=== PATIENT | female | born 1990 | race African-American/Black ===

== ENCOUNTER 2019-04-10 16:08 | Emergency (ER) | payer MEDICAID ==
[~2019-04-10] VITALS: Ht 167.6 cm; Wt 66.7 kg
[2019-04-10 16:20] VITALS: BP 125/78
[2019-04-10] MEDS ORDERED: AMOX1TAB61 PO (16:37)
--- NOTE | 2019-04-10 16:38 | PHYS DOC ---
Past Medical History Past Medical History: No Pertinent History Past Surgical History: No Surgical History Alcohol Use: None Drug Use: None Adult General Chief Complaint Chief Complaint: DENTAL PROBLEM HPI HPI Patient is a 29 year old female who presents with dental pain for 1 month. Patient was seen at a dental clinic and had a tooth pulled yesterday. She states that the pain has been getting worse. She told the dentist that she was taking clindamycin as it had been prescribed to her however the patient states she never got it filled. She states she has been taking ibuprofen at home and is not helping her pain. She rates her pain as 8 out of 10 in severity. Review of Systems Review of Systems Constitutional: Denies fever or chills [] Eyes: Denies change in visual acuity, redness, or eye pain [] HENT: Reports dental pain. Denies nasal congestion or sore throat [] Respiratory: Denies cough or shortness of breath [] Cardiovascular: No additional information not addressed in HPI [] GI: Denies abdominal pain, nausea, vomiting, bloody stools or diarrhea [] : Denies dysuria or hematuria [] Musculoskeletal: Denies back pain or joint pain [] Integument: Denies rash or skin lesions [] Neurologic: Denies headache, focal weakness or sensory changes [] Endocrine: Denies polyuria or polydipsia [] Complete systems were reviewed and found to be within normal limits, except as documented in this note. Allergies Allergies Allergies Coded Allergies Type Severity Reaction Last Updated Verified No Known Drug Allergies 04/10/19 No Physical Exam Physical Exam Constitutional: Well developed, well nourished, no acute distress, non-toxic appearance. [] HENT: Has swelling and missing tooth at # 28. Normocephalic, atraumatic, bilateral external ears normal, oropharynx moist, no oral exudates, nose normal. [] Eyes: PERRLA, EOMI, conjunctiva normal, no discharge. [] Neck: Normal range of motion, no tenderness, supple, no stridor. [] Cardiovascular:Heart rate regular rhythm, no murmur [] Lungs & Thorax: Bilateral breath sounds clear to auscultation [] Abdomen: Bowel sounds normal, soft, no tenderness, no masses, no pulsatile masses. [] Skin: Warm, dry, no erythema, no rash. [] Back: No tenderness, no CVA tenderness. [] Extremities: No tenderness, no cyanosis, no clubbing, ROM intact, no edema. [] Neurologic: Alert and oriented X 3, normal motor function, normal sensory function, no focal deficits noted. [] Psychologic: Affect normal, judgement normal, mood normal. [] Current Patient Data Vital Signs Vital Signs Date Time Temp Pulse Resp B/P (MAP) Pulse Ox O2 Delivery O2 Flow Rate FiO2 04/10/19 16:20 97.9 94 16 125/78 (94) 100 Room Air 97.9 EKG EKG [] Radiology/Procedures Radiology/Procedures [] Course & Med Decision Making Course & Med Decision Making Pertinent Labs and Imaging studies reviewed. (See chart for details) Appears to have dental abscess. Will have patient follow back up with Dentist. Will prescribe Augmentin and give a [place] here for pain. Dragon Disclaimer Dragon Disclaimer This electronic medical record was generated, in whole or in part, using a voice recognition dictation system. Departure Departure Impression: Primary Impression: Dental abscess Disposition: HOME, SELF-CARE Condition: STABLE Patient Instructions: Dental Abscess Additional Instructions: Thank you for visiting [facility]. We appreciate you trusting us with your care. If any additional problems come up don't hesitate to return to visit us. Please follow up with your primary care provider so they can plan additional care if needed and know about the problem that you had. If symptoms worsen come back to the Emergency Department. Any concerning symptoms that start such as chest pain, shortness of air, weakness or numbness on one side of the body, running high fevers or any other concerning symptoms return to the ER. You have been prescribed an antibiotic today to help fight your infection. Please take all of the antibiotic as directed. If after 48 hours the infection is not improving, please return for more care. If the infection worsens, return to ER for additional care. Please fill your medications at any pharmacy and follow the prescription instructions. Scripts Amoxicillin/Potassium Clav (AUGMENTIN 875-125 TABLET) 1 Each Tablet 1 TAB PO BID for 7 Days, #14 TAB Prov: SARAH BETH DORSEY APRN 04/10/19 SARAH BETH DORSEY APRN Apr 10, 2019 16:38
[2019-04-10] MEDS ORDERED: HYDROcodone/APAP 5/325MG 1 TAB TABLET PO ONE (16:45)
== END 2019-04-10 16:50 | disposition home or self-care (01) ==
LOC: ER 16:08
DX: K04.7 Periapical abscess without sinus (principal)
CPT/HCPCS: 99283

== ENCOUNTER 2019-04-15 08:41 | Emergency (ER) | payer MEDICAID ==
[~2019-04-15] VITALS: Ht 167.6 cm; Wt 66.7 kg
[~2019-04-15 08:41] MED LIST: AMOX1TAB61 PO
[2019-04-15 09:04] VITALS: BP 128/74
[2019-04-15] MEDS ORDERED: HYDROcodone/APAP 5/325MG 1 TAB TABLET PO ONE (10:00)
[2019-04-15] MEDS ORDERED: cefTRIAXone IM 1 GM VIAL IM ONE (10:00)
--- NOTE | 2019-04-15 10:03 | PHYS DOC ---
Past Medical History Past Medical History: Other Additional Past Medical Histor: DENTAL ABSCESS Past Surgical History: No Surgical History Alcohol Use: None Drug Use: None Adult General Chief Complaint Chief Complaint: DENTAL PROBLEM HPI HPI Patient is a 29 year old female with no significant medical history who presents to the ED today complaining as a throbbing 8 out of 10 right lower gum dental pain as well as left upper gum dental pain that has been going on for month. Patient states she was seen by a local dentist on April 09, 2019 and had an extraction done. She states the dentist put her on clindamycin but she did not take it. She states she was in the ED on April 10 2019 for dental pain and was put on Augmentin. She states she did not take it either. She states she cannot afford any medication. She states she is [place] they used to give them stronger pain medicines for dental pain. She states she is surprised in [place] nobody is willing to give her any strong pain medicines. She states she's did not get anything from the dentist other than ibuprofen. Patient denies any fever or trismus present. She continues to states she cannot afford any of this antibiotics prescriptions but continues to show interest for some stronger pain medicine than OTC. She states she cannot follow-up with the dentist because the dentist was "horrible." Review of Systems Review of Systems Constitutional: Denies fever or chills [] HENT: Reports dental pain. Denies nasal congestion or sore throat [] Musculoskeletal: Denies back pain or joint pain [] Integument: Denies rash or skin lesions [] Neurologic: Denies headache, focal weakness or sensory changes [] All other systems were reviewed and found to be within normal limits, except as documented in this note. Current Medications Current Medications Current Medications Medications (Trade) Dose Ordered Sig/Ju Start Time Stop Time Status Last Admin Dose Admin Acetaminophen/ Hydrocodone Bitart (Lortab 5/325) 2 tab 1X ONCE 04/15/19 10:00 04/15/19 10:01 UNV Ceftriaxone Sodium (Rocephin Im) 1 gm 1X ONCE 04/15/19 10:00 04/15/19 10:01 UNV Allergies Allergies Allergies Coded Allergies Type Severity Reaction Last Updated Verified No Known Drug Allergies 04/10/19 No Physical Exam Physical Exam Constitutional: Well developed, well nourished, no acute distress, non-toxic appearance. [] HENT: Normocephalic, atraumatic, bilateral external ears normal, oropharynx moist, no oral exudates, nose normal. [] Tooth #28 is extracted. No erythema to the gumline. No obvious abscess. Skin: Warm, dry, no erythema, no rash. [] Back: No tenderness, no CVA tenderness. [] Extremities: No tenderness, no cyanosis, no clubbing, ROM intact, no edema. [] Neurologic: Alert and oriented X 3, normal motor function, normal sensory function, no focal deficits noted. [] Psychologic: Affect normal, judgement normal, mood normal. [] Current Patient Data Vital Signs Vital Signs Date Time Temp Pulse Resp B/P (MAP) Pulse Ox O2 Delivery O2 Flow Rate FiO2 04/15/19 09:04 97.7 91 18 128/74 (92) 99 Room Air 97.7 EKG EKG [] Radiology/Procedures Radiology/Procedures [] Course & Med Decision Making Course & Med Decision Making Pertinent Labs and Imaging studies reviewed. (See chart for details) This is a 29-year-old female patient who presents to the ED today complaining of dental pain for 1 month. Patient had an extraction done on April 09, 2090, was sent home with clindamycin and ibuprofen. She did not take any of this medications. She came to the ED on April 10, 2019, was sent home on Augmentin, she did not fill any of this medication either. She presents today continuing to complain about dental pain. She states she cannot afford any medications but she would like something stronger than ibuprofen for her pain. I talked to patient at length. Informed patient dental pain is well managed with NSAIDs specifically ibuprofen and can be alternated with Tylenol. I offered Rocephin IM in the ED considering she is not able to fill any of her antibiotic prescriptions. She had refused initially but informed her if she cannot afford any medicine the Rocephin IM maybe a better alternative. I recommended she follows up with the dentist which she claims the dentist is horrible. Informed her she can try and find another dentist if she doesn't like the one she has, she states she is from [place] informed her to look for another dentist locally. She was discharged to home and encouraged to fill one of the RX she received from the ED or dentist. Sushant Disclaimer Sushant Disclaimer This electronic medical record was generated, in whole or in part, using a voice recognition dictation system. Departure Departure Impression: Primary Impression: Dentalgia Disposition: 01 HOME, SELF-CARE Condition: STABLE Referrals: NO PCP (PCP) follow up with a dentist in 1 week Patient Instructions: Dental Pain, [id number] Additional Instructions: You were evaluated in the emergency room for ongoing dental pain. Please establish care with another dentist if you do not like the one you currently have. Please take ibuprofen every 6 hours and Tylenol every 4 hours as needed for your dental pain. Please consider filling one of the prescriptions for antibiotics you received from either the dentist or our emergency room. SPRING ORTIZ APRN Apr 15, 2019 10:03
== END 2019-04-15 10:30 | disposition home or self-care (01) ==
LOC: ER 08:41
DX: K08.89 Other specified disorders of teeth and supporting structures (principal)
CPT/HCPCS: 96372; 99283; J0696

== ENCOUNTER 2019-09-14 07:36 | Emergency (ER) | payer MEDICAID ==
[~2019-09-14] VITALS: Ht 167.6 cm; Wt 62.6 kg
[2019-09-14] MEDS ORDERED: IV NORMAL SALINE 1000ML BAG 1,000 ML IV ONE (08:00)
[2019-09-14] MEDS ORDERED: FAMOTIDINE 20 MG/2 ML VIAL IVP ONE (08:00)
[2019-09-14] MEDS ORDERED: ONDANSETRON PF 4 MG/2 ML VIAL. IV ONE (08:00)
[2019-09-14] MEDS ORDERED: KETOROLAC 15 MG/ML VIAL. IVP ONE (08:00)
--- NOTE | 2019-09-14 08:12 | PHYS DOC ---
Past Medical History Past Medical History: Other Additional Past Medical Histor: DENTAL ABSCESS Past Surgical History: No Surgical History Smoking: Cigarettes Alcohol Use: None Drug Use: None Adult General Chief Complaint Chief Complaint: DRUG ABUSE HPI HPI Patient is a 29 year old female with PMH of opioid use who presents with opioid withdrawal symptoms. Pt reports some N/V, fatigue, body ache, LUCERO, chill. Since 2am, Pt took 1 phenergan and 1 zofran without any relieve. Pt also experience some stomach cramp and reflux symptoms. She has been on methadone for the past 2 months for her opioid addiction. This is due to a back injury that she had 9 yrs ago. However, She recently moved to from [place] and lives with her mother now. Pt has not established care with any PCP or addiction clinic. Therefore she has not taken methadone for 3 days. Review of Systems Review of Systems Constitutional: Denies fever. Positive chills Eyes: Denies redness or eye pain HENT: Denies nasal congestion or sore throat Respiratory: Denies cough or shortness of breath Cardiovascular: Denies chest pain. Some palpitations GI: Positive abdominal pain, nausea, and vomiting : Denies dysuria or hematuria Musculoskeletal: Denies back pain or joint pain Integument: Denies rash or skin lesions Neurologic: Denies headache, focal weakness or sensory changes Complete systems were reviewed and found to be within normal limits, except as documented in this note. Current Medications Current Medications Current Medications Medications (Trade) Dose Ordered Sig/Ju Start Time Stop Time Status Last Admin Dose Admin Clonidine HCl (Catapres) 0.1 mg 1X ONCE 09/14/19 10:45 09/14/19 10:46 DC 09/14/19 10:54 0.1 MG Diphenhydramine HCl (Benadryl) 50 mg 1X ONCE 09/14/19 09:30 09/14/19 09:31 DC 09/14/19 09:33 50 MG Famotidine (Pepcid Vial) 20 mg 1X ONCE 09/14/19 08:00 09/14/19 08:06 DC 09/14/19 08:29 20 MG Ketorolac Tromethamine (Toradol 15mg Vial) 15 mg 1X ONCE 09/14/19 08:00 09/14/19 08:06 DC 09/14/19 08:33 15 MG Metoclopramide HCl (Reglan Vial) 10 mg 1X ONCE 09/14/19 09:30 09/14/19 09:31 DC 09/14/19 09:34 10 MG Ondansetron HCl (Zofran) 4 mg 1X ONCE 09/14/19 10:45 09/14/19 10:46 DC 09/14/19 10:52 4 MG Sodium Chloride 1,000 ml @ 1,000 mls/hr 1X ONCE 09/14/19 08:00 09/14/19 08:59 DC 09/14/19 08:20 1,000 MLS/HR Allergies Allergies Allergies Coded Allergies Type Severity Reaction Last Updated Verified No Known Drug Allergies 04/10/19 No Physical Exam Physical Exam Constitutional: Well developed, well nourished, no acute distress, non-toxic appearance HENT: Normocephalic, atraumatic, oropharynx moist Eyes: Conjunctiva normal, no discharge Neck: Normal range of motion, no tenderness, supple Cardiovascular: Heart rate normal, regular rhythm Lungs & Thorax: Bilateral breath sounds clear to auscultation, no wheezing Abdomen: Soft, no tenderness Skin: Warm, dry, no erythema, no rash Extremities: No tenderness, ROM intact, no edema Neurologic: Alert and oriented X 3, no focal deficits noted Psychologic: Affect normal, judgement normal Current Patient Data Vital Signs Vital Signs Date Time Temp Pulse Resp B/P (MAP) Pulse Ox O2 Delivery O2 Flow Rate FiO2 09/14/19 10:54 67 113/64 09/14/19 10:30 18 99 Room Air 09/14/19 07:40 98.3 98.3 Lab Values Laboratory Tests Test 09/14/19 08:02 09/14/19 08:12 09/14/19 08:24 09/14/19 08:55 White Blood Count 11.0 x10^3/uL (4.0-11.0) Red Blood Count 4.15 x10^6/uL (3.50-5.40) Hemoglobin 12.6 g/dL (12.0-15.5) Hematocrit 37.7 % (36.0-47.0) Mean Corpuscular Volume 91 fL (79-100) Mean Corpuscular Hemoglobin 30 pg (25-35) Mean Corpuscular Hemoglobin Concent 33 g/dL (31-37) Red Cell Distribution Width 13.6 % (11.5-14.5) Platelet Count 239 x10^3/uL (140-400) Neutrophils (%) (Auto) 88 % (31-73) H Lymphocytes (%) (Auto) 9 % (24-48) L Monocytes (%) (Auto) 3 % (0-9) Eosinophils (%) (Auto) 0 % (0-3) Basophils (%) (Auto) 0 % (0-3) Neutrophils # (Auto) 9.6 x10^3/uL (1.8-7.7) H Lymphocytes # (Auto) 1.0 x10^3/uL (1.0-4.8) Monocytes # (Auto) 0.3 x10^3/uL (0.0-1.1) Eosinophils # (Auto) 0.0 x10^3/uL (0.0-0.7) Basophils # (Auto) 0.0 x10^3/uL (0.0-0.2) Segmented Neutrophils % 87 % (35-66) H Lymphocytes % 9 % (24-48) L Monocytes % 2 % (0-10) Eosinophils % 2 % (0-5) Platelet Estimate Adequate (ADEQUATE) Poikilocytosis Slight Anisocytosis Slight Urine Collection Type Unknown Urine Color Yellow Urine Clarity Clear Urine pH 8.5 Urine Specific [place] 1.025 Urine Protein 30 mg/dL (NEG-TRACE) Urine Glucose (UA) Negative mg/dL (NEG) Urine Ketones (Stick) Negative mg/dL (NEG) Urine Blood Negative (NEG) Urine Nitrite Negative (NEG) Urine Bilirubin Negative (NEG) Urine Urobilinogen Dipstick 1.0 mg/dL (0.2 mg/dL) Urine Leukocyte Esterase Trace (NEG) Urine RBC 0 /HPF (0-2) Urine WBC Occ /HPF (0-4) Urine Squamous Epithelial Cells Many /LPF Urine Bacteria Moderate /HPF (0-FEW) Urine Mucus Marked /LPF Urine Opiates Screen Neg (NEG) Urine Methadone Screen Neg (NEG) Urine Barbiturates Neg (NEG) Urine Phencyclidine Screen Neg (NEG) Urine Amphetamine/Methamphetamine Neg (NEG) Urine Benzodiazepines Screen Neg (NEG) Urine Cocaine Screen Neg (NEG) Urine Cannabinoids Screen Neg (NEG) Urine Ethyl Alcohol Neg (NEG) POC Urine HCG, Qualitative Hcg negative (Negative) Sodium Level 144 mmol/L (136-145) Potassium Level 3.4 mmol/L (3.5-5.1) L Chloride Level 104 mmol/L (98-107) Carbon Dioxide Level 28 mmol/L (21-32) Anion Gap 12 (6-14) Blood Urea Nitrogen 5 mg/dL (7-20) L Creatinine 0.8 mg/dL (0.6-1.0) Estimated GFR (Cockcroft-Gault) 101.9 BUN/Creatinine Ratio 6 (6-20) Glucose Level 102 mg/dL (70-99) H Calcium Level 8.6 mg/dL (8.5-10.1) Magnesium Level 1.5 mg/dL (1.8-2.4) L Total Bilirubin 0.4 mg/dL (0.2-1.0) Aspartate Amino Transferase (AST) 18 U/L (15-37) Alanine Aminotransferase (ALT) 16 U/L (14-59) Alkaline Phosphatase 27 U/L (46-116) L Total Protein 7.1 g/dL (6.4-8.2) Albumin 4.0 g/dL (3.4-5.0) Albumin/Globulin Ratio 1.3 (1.0-1.7) Lipase 90 U/L (73-393) Ethyl Alcohol Level < 10 mg/dL (0-10) Laboratory Tests 09/14/19 08:02 Laboratory Tests 09/14/19 08:55 Microbiology 09/14/19 Urine Culture - Final, Complete 09/14/19 Urine Culture Result 1 (CACHORRO) - Final, Complete EKG EKG [] Radiology/Procedures Radiology/Procedures [] Course & Med Decision Making Course & Med Decision Making Pertinent Lab studies reviewed. (See chart for details) Patient is a 29 year old female with PMH of opioid use who presents with opioid withdrawal symptoms. Symptomatic treatment provided. IVF hydration given. Labs obtained and posted to chart. Call made to patient's methadone clinic in [place] who provided phone numbers for clinics here in . PAT copy clerk presented and also discussed options available to patient. Resources provided. Patient stable for discharge with outpatient follow-up with PCP. Discussed findings and plan with patient, who acknowledges understanding and agreement. Dragon Disclaimer Dragon Disclaimer This electronic medical record was generated, in whole or in part, using a voice recognition dictation system. Departure Departure Impression: Primary Impression: Opiate withdrawal Disposition: 01 HOME, SELF-CARE Condition: STABLE Referrals: NO PCP (PCP) Patient Instructions: Narcotic Withdrawal Additional Instructions: Please follow up with the resources provided. Scripts Prochlorperazine Maleate (PROCHLORPERAZINE MALEATE) 25 Mg Supp.rect 25 MG RC Q8HRS PRN for NAUSEA, #14 SUPP.RECT Prov: SARAH BETH ROACH DO 09/14/19 Clonidine Hcl (CLONIDINE HCL) 0.1 Mg Tablet 0.1 MG PO Q8HRS PRN for WITHDRAWAL IRRITABILITY, #10 TAB Prov: SARAH BETH ROACH DO 09/14/19 SARAH BETH ROACH DO Sep 14, 2019 08:12
[2019-09-14 08:35] LABS: BASO % 0 % (0-3); EOS % 0 % (0-3); HEMATOCRIT 37.7 % (36.0-47.0); HEMOGLOBIN 12.6 g/dL (12.0-15.5); LYMPH % 9 % (24-48); MEAN CORPUSCULAR HEMOGLOBIN 30 pg (25-35); MEAN CORPUSCULAR HGB CONC 33 g/dL (31-37); MEAN CORPUSCULAR VOLUME 91 fL (79-100); MONO # 0.3 x10^3/uL (0.0-1.1); MONO % 3 % (0-9); NEUT # 9.6 x10^3/uL (1.8-7.7); NEUT % 88 % (31-73); PLATELET COUNT 239 x10^3/uL (140-400); RED BLOOD COUNT 4.15 x10^6/uL (3.50-5.40); RED CELL DISTRIBUTION WIDTH 13.6 % (11.5-14.5)
[2019-09-14 08:44] LABS: BARBITURATES NEG (NEG); BENZODIAZEPINES NEG (NEG); CANNABINOIDS NEG (NEG); COCAINE NEG (NEG); METHADONE NEG (NEG); OPIATES NEG (NEG); PHENCYCLIDINE NEG (NEG)
[2019-09-14 08:46] LABS: BILIRUBIN,URINE NEGATIVE (NEG); CLARITY,URINE CLEAR; COLOR,URINE YELLOW; NITRITE,URINE NEGATIVE (NEG); PH,URINE 8.5; PROTEIN,URINE 30 mg/dL (NEG-TRACE)
[2019-09-14 08:47] LABS: AMPHETAMINE/METHAMPHETAMINE NEG (NEG)
[2019-09-14 08:54] LABS: RBC,URINE 0 /HPF (0-2); SQUAMOUS EPITHELIAL CELL,UR MANY /LPF
[2019-09-14 08:55] LABS: BACTERIA,URINE MODERATE /HPF (0-FEW); WBC,URINE OCC /HPF (0-4)
[2019-09-14 09:17] LABS: CALCIUM 8.6 mg/dL (8.5-10.1); CREATININE 0.8 mg/dL (0.6-1.0); GFR 101.9; POTASSIUM 3.4 mmol/L (3.5-5.1)
[2019-09-14 09:22] LABS: ALBUMIN/GLOBULIN RATIO 1.3 (1.0-1.7); MAGNESIUM 1.5 mg/dL (1.8-2.4); TOTAL BILIRUBIN 0.4 mg/dL (0.2-1.0); TOTAL PROTEIN 7.1 g/dL (6.4-8.2)
[2019-09-14] MEDS ORDERED: diphenhydrAMINE 50 MG/ML VIAL IVP ONE (09:30)
[2019-09-14] MEDS ORDERED: METOCLOPRAMIDE HCL 10 MG/2 ML VIAL. IVP ONE (09:30)
[2019-09-14 10:20] LABS: % EOS 2 % (0-5); % LYMPHS 9 % (24-48); % MONOS 2 % (0-10); % SEGS 87 % (35-66); PLT ESTIMATE ADEQUATE (ADEQUATE)
[2019-09-14 10:21] LABS: ANISOCYTOSIS SLIGHT; POIKILOCYTOSIS SLIGHT
[2019-09-14] MEDS ORDERED: cloNIDine HCL 0.1 MG TABLET PO ONE (10:45)
[2019-09-14] MEDS ORDERED: ONDANSETRON PF 4 MG/2 ML VIAL. IVP ONE (10:45)
[2019-09-14] MEDS ORDERED: PROC25SU23 RC (10:48)
[2019-09-14] MEDS ORDERED: CLON0.1T PO (10:48)
[2019-09-14 10:54] VITALS: BP 113/64
== END 2019-09-14 10:56 | disposition home or self-care (01) ==
LOC: ER 07:36
DX: F11.23 Opioid dependence with withdrawal (principal); F17.210 Nicotine dependence, cigarettes, uncomplicated; R11.2 Nausea with vomiting, unspecified
CPT/HCPCS: 36415; 80053; 80307; 81001; 81025; 83690; 83735; 85007; 85025; 87086; 96361; 96374; 96375; 96376; 99285; G0480; J1200; J1885; J2405; J2765; J3490; J7030

== ENCOUNTER 2019-09-29 12:55 | Emergency (ER) | payer MEDICAID ==
[~2019-09-29] VITALS: Ht 167.6 cm; Wt 60.3 kg
[~2019-09-29 12:55] MED LIST changes: +CLON0.1T PO; +PROC25SU23 RC
[2019-09-29] MEDS ORDERED: CETI10TA16 PO (14:08)
[2019-09-29] MEDS ORDERED: BISA5TAB4 PO (14:08)
--- NOTE | 2019-09-29 14:09 | PHYS DOC ---
Past Medical History Past Medical History: Other Additional Past Medical Histor: DENTAL ABSCESS (SARAH BETH DORSEY APRN) Past Surgical History: No Surgical History (SARAH BETH DORSEY APRN) Alcohol Use: None Drug Use: None (SARAH BETH DORSEY APRN) Adult General Chief Complaint Chief Complaint: CONSTIPATION [facility] HPI Patient is a 29 year old female who presents with a rash has been ongoing for 5-6 days. She is tried a Hydrocortone cream on the rash which has not helped. She states that before this rash popped up she is around cats. The patient also states she's been constipated for 3 weeks. Patient states she has a history of Crohn's disease. Denies any abdominal pain. Complete ROS were reviewed and found to be within normal limits, except as documented in the HPI (SARAH BETH DORSEY APRN) Allergies Allergies Allergies Coded Allergies Type Severity Reaction Last Updated Verified No Known Drug Allergies 04/10/19 No (CINDA FROST MD) Physical Exam Physical Exam Constitutional: Well developed, well nourished, no acute distress, non-toxic appearance. [] HENT: Normocephalic, atraumatic, bilateral external ears normal, oropharynx moist, no oral exudates, nose normal. [] Eyes: PERRLA, EOMI, conjunctiva normal, no discharge. [] Abdomen: no tenderness, no masses, no pulsatile masses. [] Skin: maculopapular rash to neck/face. Neurologic: Alert and oriented X 3, normal motor function, normal sensory function, no focal deficits noted. [] Psychologic: Affect normal, judgement normal, mood normal. [] (SARAH BETH DORSEY APRN) Current Patient Data Vital Signs Vital Signs Date Time Temp Pulse Resp B/P (MAP) Pulse Ox O2 Delivery O2 Flow Rate FiO2 09/29/19 14:17 97.9 78 18 126/74 (91) 95 Room Air 97.9 (CINDA FROST MD) EKG EKG [] (SARAH BETH DORSEY APRN) Radiology/Procedures Radiology/Procedures [] (SARAH BETH DORSEY APRN) Course & Med Decision Making Course & Med Decision Making Pertinent Labs and Imaging studies reviewed. (See chart for details) Discussed the patient length that she needs to obtain a primary care doctor to manage these issues. Discussed with the patient that she can take Zyrtec at home for the rash as she states that she refuses to take Benadryl. For the constipation discussed with the patient that I'm more than happy to prescribe her MiraLAX or magnesium citrate. The patient states that is not working for her and that she demands an enema. Will prescribe an enema for home. Reiterated with patient that with her Crohn's disease that she needs more extensive care than just an emergency room visit. Discussed that she needs follow-up. (SARAH BETH DORSEY APRN) Course & Med Decision Making Staff Physician Addendum: I was working in the ER during the course of this patient's visit. I was available for consultation as needed, but I was not directly involved in the care of this patient. (CINDA FROST MD) Dragon Disclaimer Dragon Disclaimer This electronic medical record was generated, in whole or in part, using a voice recognition dictation system. (SARAH BETH DORSEY APRN) Departure Departure Impression: Primary Impression: Rash Additional Impression: Constipation Disposition: 01 HOME, SELF-CARE Condition: STABLE Referrals: NO PCP (PCP) Patient Instructions: Constipation, Adult Additional Instructions: Thank you for visiting [facility]. We appreciate you trusting us with your care. If any additional problems come up don't hesitate to return to visit us. Please follow up with your primary care provider so they can plan additional care if needed and know about the problem that you had. If symptoms worsen come back to the Emergency Department. Any concerning symptoms that start such as chest pain, shortness of air, weakness or numbness on one side of the body, running high fevers or any other concerning symptoms return to the ER. Scripts Bisacodyl (BISACODYL) 5 Mg Tablet.dr 5 MG PO PRN DAILY PRN for CONSTIPATION for 3 Days, #3 TAB 0 Refills Prov: SARAH BETH DORSEY APRN 09/29/19 Cetirizine Hcl (CETIRIZINE HCL) 10 Mg Tablet 1 TAB PO DAILY, #30 TAB 5 Refills Prov: SARAH BETH DORSEY APRN 09/29/19 Problem Qualifiers Additional Impression: Constipation Constipation type: unspecified constipation type Qualified Codes: K59.00 - Constipation, unspecified SARAH BETH DORSEY APRN Sep 29, 2019 14:09 CINDA FROST MD Sep 30, 2019 07:55
[2019-09-29 14:17] VITALS: BP 126/74
== END 2019-09-29 14:20 | disposition home or self-care (01) ==
LOC: ER 12:55
DX: R21 Rash and other nonspecific skin eruption (principal); K59.00 Constipation, unspecified; K50.90 Crohn's disease, unspecified, without complications
CPT/HCPCS: 99282

== ENCOUNTER 2020-03-24 12:16 | Emergency (ER) | payer SELFPAY ==
[~2020-03-24] VITALS: Ht 167.6 cm; Wt 62.7 kg
[~2020-03-24 12:16] MED LIST changes: +BISA5TAB4 PO; +CETI10TA16 PO
[2020-03-24 12:47] VITALS: BP 116/57
[2020-03-24 13:42] LABS: BILIRUBIN,URINE NEGATIVE (NEG); CLARITY,URINE CLEAR; COLOR,URINE YELLOW; NITRITE,URINE NEGATIVE (NEG); PROTEIN,URINE NEGATIVE (NEG-TRACE)
[2020-03-24 13:57] LABS: SQUAMOUS EPITHELIAL CELL,UR MANY /LPF
[2020-03-24 13:58] LABS: BACTERIA,URINE MANY /HPF (0-FEW)
[2020-03-24] MEDS ORDERED: ONDANSETRON ODT 4 MG TAB.RAPDIS. PO ONE (14:45)
[2020-03-24] MEDS ORDERED: ONDANSETRON PF 4 MG/2 ML VIAL. IVP ONE (14:45)
--- NOTE | 2020-03-24 15:00 | RAD ---
OB < 14 WKS History: Reason: abd pain, preg / Spl. Instructions: / History: Comparison: None. Technique: Grayscale and color Doppler imaging of the pelvis was performed using transabdominal technique. Findings: The uterus measures 8.2 x 5.0 x 4.2 cm. Single intrauterine gestational sac oblong appearance. Yolk sac identified. [place]-rump length also identified measures 0.56 cm. Estimated gestational age by ultrasound 6 weeks 2 days. heart rate 160 bpm. Right ovary measures 2.4 x 3.3 x 1.9 cm. Left ovary measures 2.4 x 2.1 x 1.4 cm. Normal Doppler flow to the ovaries bilaterally. No adnexal masses are seen. IMPRESSION: 1. Single live intrauterine with gestational age 6 weeks 2 days and heart rate 160 bpm. Electronically signed by: Marito Rodríguez DO (03/24/2020 2:57 PM) [id number]
[2020-03-24] MEDS ORDERED: PNV1TAB.3 PO (15:28)
[2020-03-24] MEDS ORDERED: ONDA4TAB7 PO (15:28)
[2020-03-24] MEDS ORDERED: [UNRECOGNIZED DRUG - CODE] PO (15:28)
--- NOTE | 2020-03-24 15:28 | PHYS DOC ---
Past Medical History Past Medical History: Other Additional Past Medical Histor: DENTAL ABSCESS, CROHNS,NARCOTIC ABUSE/TAKES SUBOXONE Past Surgical History: No Surgical History Smoking Status: Current Every Day Smoker Additional Information: 0.5 PPD Alcohol Use: None Drug Use: None General Adult EDM: Chief Complaint: NAUSEA/VOMITING/DIARRHA HPI: HPI: Patient is a 30 year old female who presents with nausea that is been intermittent for the last month. She had a positive test at the beginning of February. This is her second . She had severe nausea and vomiting with her first . She denies any abdominal pain, vaginal bleeding, vaginal discharge, vomiting, diarrhea, fever. This is similar to what she has had previously. Review of Systems: Review of Systems: General: Denies fever, chills, sweats, fatigue Eyes: Denies drainage, blurred vision, eye redness HENT: Denies rhinorrhea, sore throat, earache Respiratory: Denies cough, shortness of breath, wheezing Cardiac: Denies edema, palpitations, chest pain GI: Reports nausea. Denies abdominal pain, vomiting, diarrhea, vaginal bleeding, vaginal discharge MSK: Denies neck pain, back pain Skin: Denies rash, jaundice Neuro: Denies headache, dizziness Psychiatric: Denies SI/HI Heart Score: Risk Factors: Risk Factors: DM, Current or recent (<one month) smoker, HTN, HLP, family history of CAD, obesity. Risk Scores: Score 0 - 3: 2.5% MACE over next 6 weeks - Discharge Home Score 4 - 6: 20.3% MACE over next 6 weeks - Admit for Clinical Observation Score 7 - 10: 72.7% MACE over next 6 weeks - Early Invasive Strategies Current Medications: Current Medications Medications (Trade) Dose Ordered Sig/Ju Start Time Stop Time Status Last Admin Dose Admin Ondansetron HCl (Zofran Odt) 4 mg 1X ONCE 03/24/20 14:45 03/24/20 14:46 DC 03/24/20 14:59 4 MG Ondansetron HCl (Zofran) 4 mg 1X ONCE 03/24/20 14:45 03/24/20 14:44 DC Allergies: Allergies: Allergies Coded Allergies Type Severity Reaction Last Updated Verified Penicillins Allergy Unknown N/V/D 03/24/20 Yes Physical Exam: PE: General: Awake, alert, NAD. Well Nourished, well hydrated. Cooperative HEENT: Atraumatic, EOMI, PERRL, airway patent, moist oral mucosa Neck: Supple, trachea midline Respiratory: CTA bilaterally, normal effort, no wheezing/crackles CV: RRR, no murmur, cap refill <2 GI: Soft, nondistended, nontender, no masses MSK: No obvious deformities Skin: Warm, dry, intact Neuro: A&O x3, speech NL, sensory and motor grossly intact, no focal deficits Psych: Normal affect, normal mood, not suicidal or homicidal Current Patient Data: Labs: Laboratory Tests Test 03/24/20 12:49 03/24/20 13:06 Urine Collection Type Unknown Urine Color Yellow Urine Clarity Clear Urine pH 6.0 (<5.0-8.0) Urine Specific [place] 1.025 (1.000-1.030) Urine Protein Negative mg/dL (NEG-TRACE) Urine Glucose (UA) Negative mg/dL (NEG) Urine Ketones (Stick) Negative mg/dL (NEG) Urine Blood Negative (NEG) Urine Nitrite Negative (NEG) Urine Bilirubin Negative (NEG) Urine Urobilinogen Dipstick 1.0 mg/dL (0.2 mg/dL) Urine Leukocyte Esterase Trace (NEG) Urine RBC 1-2 /HPF (0-2) Urine WBC 1-4 /HPF (0-4) Urine Squamous Epithelial Cells Many /LPF Urine Bacteria Many /HPF (0-FEW) Urine Mucus Marked /LPF POC Urine HCG, Qualitative Hcg positive (Negative) Vital Signs: Vital Signs Date Time Temp Pulse Resp B/P (MAP) Pulse Ox O2 Delivery O2 Flow Rate FiO2 03/24/20 12:47 98.4 87 18 116/57 (76) 100 Room Air 98.4 EKG: EKG: [] Radiology/Procedures: Radiology/Procedures: [] Course & Med Decision Making: Course & Med Decision Making Pertinent Labs and Imaging studies reviewed. (See chart for details) Patient is a 30-year-old female who presents with nausea and a positive test. She has not had an ultrasound or any medical care for this . Ultrasound shows a 6-week gestation fetus with a good heart rate. Patient will be given Zofran and started on B6. Patient's test results and vitals while in the ED were fully reviewed and discussed with the patient. Patient is stable and at this time does not need admission to the hospital. We have discussed strict return precautions and the importance of following up with their Primary Care Physician. Patient stated understanding and was given an opportunity to ask any questions. Patient is in agreement with plan. Dragon Disclaimer: Sushant Disclaimer: This electronic medical record was generated, in whole or in part, using a voice recognition dictation system. Departure Departure Impression: Primary Impression: Nausea/vomiting in Disposition: HOME, SELF-CARE Condition: STABLE Referrals: NO PCP (PCP) MILTON VERGARA Jr, MD Patient Instructions: ABCs of Scripts Pnv No.115/Iron Fumarate/Fa ( 19 CHEWABLE TABLET) 1 Each Tab.chew 1 TAB PO DAILY for 30 Days, #30 TAB 0 Refills Prov: CAMILLA WALDRON MD 03/24/20 Pyridoxine Hcl (VITAMIN B-6) 250 Mg Tablet 1 TAB PO TID for 30 Days, #90 TAB 0 Refills Prov: CAMILLA WALDRON MD 03/24/20 Ondansetron Hcl (ZOFRAN) 4 Mg Tablet 1 TAB PO PRN Q6-8HRS for nausea, #12 TAB Prov: CAMILLA WALDRON MD 03/24/20 Justicifation of Admission Dx: Justifications for Admission: Justification of Admission Dx: No CAMILLA WALDRON MD Mar 24, 2020 15:28
== END 2020-03-24 15:33 | disposition home or self-care (01) ==
LOC: ER 12:16
DX: O26.891 Other specified pregnancy related conditions, first trimester (principal); R11.2 Nausea with vomiting, unspecified; O99.331 Smoking (tobacco) complicating pregnancy, first trimester; Z3A.01 Less than 8 weeks gestation of pregnancy; Z88.0 Allergy status to penicillin
CPT/HCPCS: 36415; 76801; 81001; 81025; 84702; 99284

== ENCOUNTER 2020-04-17 14:46 | Emergency (ER) | payer SELFPAY ==
[~2020-04-17] VITALS: Ht 167.6 cm; Wt 63.6 kg
[~2020-04-17 14:46] MED LIST changes: +ONDA4TAB7 PO; +PNV1TAB.3 PO; +[UNRECOGNIZED DRUG - CODE] PO
[2020-04-17 15:38] LABS: BILIRUBIN,URINE NEGATIVE (NEG); CLARITY,URINE CLEAR; COLOR,URINE YELLOW; NITRITE,URINE NEGATIVE (NEG); PROTEIN,URINE NEGATIVE (NEG-TRACE); UROBILINOGEN,URINE 0.2 mg/dL (0.2 mg/dL)
[2020-04-17 15:45] LABS: BACTERIA,URINE MODERATE /HPF (0-FEW); SQUAMOUS EPITHELIAL CELL,UR MANY /LPF
[2020-04-17] MEDS ORDERED: ONDANSETRON ODT 4 MG TAB.RAPDIS. PO ONE (15:45)
--- NOTE | 2020-04-17 17:02 | RAD ---
Obstetrical ultrasound 04/17/2020. Reason for exam: Cramping with . FINDINGS: A living intrauterine embryo is demonstrated, showing cardiac activity at 165 bpm. Estimated age by crown-rump length measurement is 8 weeks 4 days, giving DONATO of 11/23/2020. Gestational sac is normal in appearance with small amniotic membrane visible. No adjacent hemorrhage is seen. The right ovary appears normal. The left ovary cannot be seen. There is no apparent free fluid or adnexal mass. IMPRESSION: Living intrauterine embryo. No identified cause for cramping. Electronically signed by: Jesus Izaguirre Jr., MD (04/17/2020 4:59 PM) [facility]
--- NOTE | 2020-04-17 17:15 | PHYS DOC ---
Past Medical History Past Medical History: No Pertinent History, Other Additional Past Medical Histor: DENTAL ABSCESS, CROHNS,NARCOTIC ABUSE/TAKES SUBOXONE Past Surgical History: No Surgical History Smoking Status: Current Every Day Smoker Alcohol Use: None Drug Use: None General Adult EDM: Chief Complaint: PAIN ON URINATION HPI: HPI: Patient is a 30 year old female 2 para 1 currently 10 weeks p er her statement who presents to the ED today complaining of urinary frequency, symptoms for 3 days. She is also complaining of nausea with no vomiting on and off during this . Denies any vaginal bleeding. She states she has not been seen by the PEDIATRIC HOSPITALIST. Reports occasional abdominal cramping. Review of Systems: Review of Systems: Constitutional: Denies fever or chills. [] Eyes: Denies change in visual acuity. [] HENT: Denies nasal congestion or sore throat. [] Respiratory: Denies cough or shortness of breath. [] Cardiovascular: Denies chest pain or edema. [] GI: Denies abdominal pain, nausea, vomiting, bloody stools or diarrhea. [] : Denies dysuria. [] Musculoskeletal: Denies back pain or joint pain. [] Integument: Denies rash. [] Neurologic: Denies headache, focal weakness or sensory changes. [] Endocrine: Denies polyuria or polydipsia. [] Lymphatic: Denies swollen glands. [] Psychiatric: Denies depression or anxiety. [] Heart Score: Risk Factors: Risk Factors: DM, Current or recent (<one month) smoker, HTN, HLP, family history of CAD, obesity. Risk Scores: Score 0 - 3: 2.5% MACE over next 6 weeks - Discharge Home Score 4 - 6: 20.3% MACE over next 6 weeks - Admit for Clinical Observation Score 7 - 10: 72.7% MACE over next 6 weeks - Early Invasive Strategies Current Medications: Current Medications Medications (Trade) Dose Ordered Sig/Ju Start Time Stop Time Status Last Admin Dose Admin Ondansetron HCl (Zofran Odt) 4 mg 1X ONCE 04/17/20 15:45 04/17/20 15:46 DC 04/17/20 16:33 4 MG Allergies: Allergies: Allergies Coded Allergies Type Severity Reaction Last Updated Verified Penicillins Allergy Unknown N/V/D 03/24/20 Yes Physical Exam: PE: Constitutional: Well developed, well nourished, no acute distress, non-toxic appearance. [] HENT: Normocephalic, atraumatic, bilateral external ears normal, oropharynx moist, no oral exudates, nose normal. [] Eyes: PERRLA, EOMI, conjunctiva normal, no discharge. [] Neck: Normal range of motion, no tenderness, supple, no stridor. [] Cardiovascular:Heart rate regular rhythm, no murmur [] Lungs & Thorax: Bilateral breath sounds clear to auscultation [] Abdomen: Bowel sounds normal, soft, no tenderness, no masses, no pulsatile masses. [] Skin: Warm, dry, no erythema, no rash. [] Back: No tenderness, no CVA tenderness. [] Extremities: No tenderness, no cyanosis, no clubbing, ROM intact, no edema. [] Neurologic: Alert and oriented X 3, normal motor function, normal sensory function, no focal deficits noted. [] Psychologic: Affect normal, judgement normal, mood normal. [] Current Patient Data: Labs: Laboratory Tests Test 04/17/20 14:56 04/17/20 15:08 Urine Collection Type Unknown Urine Color Yellow Urine Clarity Clear Urine pH 6.0 (<5.0-8.0) Urine Specific [place] 1.025 (1.000-1.030) Urine Protein Negative mg/dL (NEG-TRACE) Urine Glucose (UA) Negative mg/dL (NEG) Urine Ketones (Stick) Trace mg/dL (NEG) Urine Blood Negative (NEG) Urine Nitrite Negative (NEG) Urine Bilirubin Negative (NEG) Urine Urobilinogen Dipstick 0.2 mg/dL (0.2 mg/dL) Urine Leukocyte Esterase Negative (NEG) Urine RBC 1-2 /HPF (0-2) Urine WBC 1-4 /HPF (0-4) Urine Squamous Epithelial Cells Many /LPF Urine Bacteria Moderate /HPF (0-FEW) Urine Mucus Marked /LPF POC Urine HCG, Qualitative Hcg positive (Negative) Vital Signs: Vital Signs Date Time Temp Pulse Resp B/P (MAP) Pulse Ox O2 Delivery O2 Flow Rate FiO2 04/17/20 15:15 98.6 95 13 108/89 (95) 98 Room Air 98.6 EKG: EKG: [] Radiology/Procedures: Radiology/Procedures: []PROCEDURE: OB < 14 WKS Obstetrical ultrasound 04/17/2020. Reason for exam: Cramping with . FINDINGS: A living intrauterine embryo is demonstrated, showing cardiac activity at 165 bpm. Estimated age by crown-rump length measurement is 8 weeks 4 days, giving DONATO of 11/23/2020. Gestational sac is normal in appearance with small amniotic membrane visible. No adjacent hemorrhage is seen. The right ovary appears normal. The left ovary cannot be seen. There is no apparent free fluid or adnexal mass. IMPRESSION: Living intrauterine embryo. No identified cause for cramping. Electronically signed by: Milton Aguilar Jr., MD (04/17/2020 4:59 PM) [facility] DICTATED and SIGNED BY: MILTON AGUILAR Jr, MD DATE: 04/17/201658 Course & Med Decision Making: Course & Med Decision Making Pertinent Labs and Imaging studies reviewed. (See chart for details) This is a 30-year-old female patient 2 para 1 currently presenting to the ED today complaining of urinary frequency and concern she has a UTI. Urine positive for bacteria. Discharged on cephalexin. Was also complaining of cramping intermittently in this . OB ultrasound was noted for living IUP with a heart rate of 165. She is also complaining of nausea in . Discharged on Compazine. Provided OB for follow-up. Provided return precautions. Discharged in stable condition. Dragon Disclaimer: Dragon Disclaimer: This electronic medical record was generated, in whole or in part, using a voice recognition dictation system. Departure Departure Impression: Primary Impression: Urinary tract infection during Qualified Codes: O23.41 - Unspecified infection of urinary tract in , first trimester Additional Impression: Nausea/vomiting in Disposition: 01 HOME, SELF-CARE Condition: STABLE Referrals: NO PCP (PCP) SALOMON MOROCHO MD follow up in the next 1-2 weeks Patient Instructions: Urinary Tract Infection Additional Instructions: Congratulations on your . Take the prescribed antibiotics as ordered until completed for UTI. Follow-up with the provided PEDIATRIC HOSPITALIST in the next 1 to 2 weeks. Come back to the ED at any point symptoms worsen. Scripts Prochlorperazine Maleate (Compazine) 10 Mg Tablet 1 TAB PO Q6HRS, #21 TAB 0 Refills Prov: MUTUNGA,[employer]ING [employer] 04/17/20 Nitrofurantoin Monohyd/M-Cryst (MACROBID 100 MG CAPSULE) 100 Mg Capsule 1 CAP PO BID for 7 Days, #14 CAP 0 Refills Prov: SPRING ORTIZ APRN 04/17/20 Justicifation of Admission Dx: Justifications for Admission: Justification of Admission Dx: N/A SPRING ORTIZ APRN Apr 17, 2020 17:15
[2020-04-17 17:30] VITALS: BP 101/56
[2020-04-17] MEDS ORDERED: PROC10TA57 PO (17:36)
[2020-04-17] MEDS ORDERED: NITR100C62 PO (17:36)
== END 2020-04-17 17:35 | disposition home or self-care (01) ==
LOC: ER 14:46
DX: O23.41 Unspecified infection of urinary tract in pregnancy, first trimester (principal); O21.9 Vomiting of pregnancy, unspecified; O99.331 Smoking (tobacco) complicating pregnancy, first trimester; R35.0 Frequency of micturition; Z98.890 Other specified postprocedural states; Z88.0 Allergy status to penicillin; Z3A.10 10 weeks gestation of pregnancy
CPT/HCPCS: 76801; 81001; 81025; 87086; 99284

== ENCOUNTER 2020-04-21 10:46 | Inpatient (IN) | payer MEDICAID ==
[~2020-04-21] VITALS: Ht 167.6 cm; Wt 75.9 kg
[~2020-04-21 10:46] MED LIST changes: +NITR100C62 PO; +PROC10TA57 PO
[2020-04-21 11:52] LABS: BILIRUBIN,URINE NEGATIVE (NEG); CLARITY,URINE CLEAR; COLOR,URINE AMBER; NITRITE,URINE NEGATIVE (NEG); PH,URINE 7.5 (<5.0-8.0); PROTEIN,URINE NEGATIVE (NEG-TRACE); UROBILINOGEN,URINE 0.2 mg/dL (0.2 mg/dL)
[2020-04-21 11:54] LABS: U PREG PATIENT POSITIVE (NEG)
[2020-04-21] MEDS ORDERED: LIDO:MAALOX 1:1 20 ML SINGLE DOSE. SWSW ONE (12:00)
[2020-04-21] MEDS ORDERED: ACETAMINOPHEN 500 MG TABLET PO ONE (12:00)
[2020-04-21 12:07] LABS: SQUAMOUS EPITHELIAL CELL,UR MANY /LPF
[2020-04-21 12:08] LABS: BACTERIA,URINE MODERATE /HPF (0-FEW); RBC,URINE 0 /HPF (0-2)
[2020-04-21 12:09] LABS: AMORPHOUS SEDIMENT,UR PRESENT /HPF
--- NOTE | 2020-04-21 12:14 | PHYS DOC ---
Past Medical History Past Medical History: No Pertinent History, Other Additional Past Medical Histor: DENTAL ABSCESS, CROHNS,NARCOTIC ABUSE/TAKES SUBOXONE Past Surgical History: No Surgical History Smoking Status: Current Every Day Smoker Alcohol Use: None Drug Use: None General Adult EDM: Chief Complaint: CHEST WALL PAIN HPI: HPI: Patient is a 30 year old female at 10 weeks gestation who presents with left-sided chest tightness that started at 2:00 this morning and has not stopped. She states it is worse if she takes a deep breath and that she has some mild shortness of breath with this. She denies any URI symptoms. She has not had any cough or fever. She states she did have an episode of vomiting earlier today. She is never had anything like this previously. She denies any trauma. She has not had any kind of fevers. She denies any leg swelling Review of Systems: Review of Systems: General: Denies fever, chills, sweats, fatigue Eyes: Denies drainage, blurred vision, eye redness HENT: Denies rhinorrhea, sore throat, earache Respiratory: Denies cough, wheezing. Reports shortness of breath Cardiac: Denies edema, palpitations.reports chest pain GI: Denies abdominal pain, Nausea, vomiting MSK: Denies back pain, neck pain Skin: Denies rash, jaundice Neuro: Denies headache, dizziness Psychiatric: Denies SI/HI Heart Score: Risk Factors: Risk Factors: DM, Current or recent (<one month) smoker, HTN, HLP, family history of CAD, obesity. Risk Scores: Score 0 - 3: 2.5% MACE over next 6 weeks - Discharge Home Score 4 - 6: 20.3% MACE over next 6 weeks - Admit for Clinical Observation Score 7 - 10: 72.7% MACE over next 6 weeks - Early Invasive Strategies Current Medications: Current Medications Medications (Trade) Dose Ordered Sig/Ju Start Time Stop Time Status Last Admin Dose Admin Acetaminophen (Tylenol) 1,000 mg 1X ONCE 04/21/20 12:00 04/21/20 12:01 DC Multi-Ingredient Mouthwash/Gargle (Gi Cocktail) 20 ml 1X ONCE 04/21/20 12:00 04/21/20 12:01 DC Allergies: Allergies: Allergies Coded Allergies Type Severity Reaction Last Updated Verified Penicillins Allergy Unknown N/V/D 03/24/20 Yes Physical Exam: PE: General: Awake, alert, NAD. Well Nourished, well hydrated. Cooperative HEENT: Atraumatic, EOMI, PERRL, airway patent, moist oral mucosa Neck: Supple, trachea midline Respiratory: CTA bilaterally, normal effort, no wheezing/crackles CV: RRR, no murmur, cap refill <2 GI: Soft, nondistended, nontender, no masses MSK: No obvious deformities Skin: Warm, dry, intact Neuro: A&O x3, speech NL, sensory and motor grossly intact, no focal deficits Psych: Normal affect, normal mood, not suicidal or homicidal Current Patient Data: Labs: Laboratory Tests Test 04/21/20 11:05 Urine Test Positive (NEG) Vital Signs: Vital Signs Date Time Temp Pulse Resp B/P (MAP) Pulse Ox O2 Delivery O2 Flow Rate FiO2 04/21/20 11:03 86 97/60 (72) 100 Room Air 04/21/20 11:00 99.2 16 99.2 EKG: EKG: [] Radiology/Procedures: Radiology/Procedures: [] Course & Med Decision Making: Course & Med Decision Making Pertinent Labs and Imaging studies reviewed. (See chart for details) Patient is a 30-year-old female at 10 weeks gestation who presents the emergency room complaining of chest tightness and shortness of breath. She does not have any URI symptoms. CBC, CMP, troponin, BNP were ordered. Patient has normal EKG. given patient is and has significant pleuritic chest pain a d-dime r was ordered. D-dimer is elevated. I had a long discussion with the patient of the pros and cons of having a CT scan for pulmonary embolism. After long discussion patient states that she has been having left leg swelling and she would like to go forward with having a CT scan at this time. She does understand the risks. Overall the risk is fairly low considering the amount of radiation given in a CT scan and the threshold needed for defects. CT angios was ordered and this was discussed with the radiologist. Patient does have a pulmonary embolism. I discussed the case with Dr. Rodríguez the on-call MANAGER APPLICATION. He recommends Lovenox. Patient will be admitted for further evaluation and care. Sushant Disclaimer: Sushant Disclaimer: This electronic medical record was generated, in whole or in part, using a voice recognition dictation system. Departure Departure Impression: Primary Impression: Chest pain Disposition: ADMITTED INPATIENT Condition: STABLE Referrals: NO PCP (PCP) Justicifation of Admission Dx: Justifications for Admission: Justification of Admission Dx: No CAMILLA WALDRON MD Apr 21, 2020 12:14
[2020-04-21] MEDS ORDERED: ONDANSETRON ODT 4 MG TAB.RAPDIS. ONE (12:26)
--- NOTE | 2020-04-21 12:37 | RAD ---
AP chest. HISTORY: Short of breath AP view was taken of the chest. Heart is normal in size. There are no acute infiltrates. There is no effusion. IMPRESSION: 1. No acute chest disease. Electronically signed by: Lg Diaz MD (04/21/2020 12:34 PM) [id number]
[2020-04-21 12:42] LABS: BASO % 0 % (0-3); EOS % 0 % (0-3); HEMATOCRIT 36.8 % (36.0-47.0); HEMOGLOBIN 12.3 g/dL (12.0-15.5); LYMPH # 1.7 x10^3/uL (1.0-4.8); LYMPH % 13 % (24-48); MEAN CORPUSCULAR HEMOGLOBIN 30 pg (25-35); MEAN CORPUSCULAR HGB CONC 33 g/dL (31-37); MEAN CORPUSCULAR VOLUME 91 fL (79-100); MONO # 0.8 x10^3/uL (0.0-1.1); MONO % 6 % (0-9); NEUT # 10.8 x10^3/uL (1.8-7.7); NEUT % 81 % (31-73); PLATELET COUNT 224 x10^3/uL (140-400); RED BLOOD COUNT 4.05 x10^6/uL (3.50-5.40); RED CELL DISTRIBUTION WIDTH 13.1 % (11.5-14.5); WHITE BLOOD COUNT 13.4 x10^3/uL (4.0-11.0)
[2020-04-21] MEDS ORDERED: ONDANSETRON ODT 4 MG TAB.RAPDIS. PO ONE (12:45)
[2020-04-21 12:49] LABS: CREATININE 0.5 mg/dL (0.6-1.0); GFR 174.1; POTASSIUM 3.7 mmol/L (3.5-5.1)
[2020-04-21 13:04] LABS: ALBUMIN 3.2 g/dL (3.4-5.0); TOTAL BILIRUBIN 0.4 mg/dL (0.2-1.0); TOTAL PROTEIN 6.5 g/dL (6.4-8.2)
--- NOTE | 2020-04-21 13:25 | EKG ---
[facility] [address] [place] [address] Test Date: 2020-04-21 Test Time: 11:06:54 Pat Name: GEOVANNI MACEDO Department: Room: Gender: F Harnessmaker: : 1990 Requested By: CAMILLA WALDRON Order Number: [id number] Reading MD: Measurements Intervals [place] Rate: 80 P: 60 MD: 150 QRS: 59 QRSD: 86 T: 24 QT: 368 QTc: 428 Interpretive Statements SINUS RHYTHM QRS(T) CONTOUR ABNORMALITY CONSIDER ANTEROLATERAL MYOCARDIAL DAMAGE POSSIBLY ABNORMAL ECG RI6.01 No previous ECG available for comparison
[2020-04-21] MEDS ORDERED: IOHEXOL 350 MG/ML 100 ML VIAL. IV ONE (15:00)
[2020-04-21] MEDS ORDERED: CONTRAST GIVEN. MC PRN (15:15)
--- NOTE | 2020-04-21 15:24 | RAD ---
CTA chest with contrast dated 04/21/2020. No comparison available. CLINICAL INDICATION: Chest pain shortness of breath and elevated d-dimer. TECHNIQUE: Contiguous axial imaging the chest performed following the intravenous administration of 90 cc Omnipaque 350. Study was performed as dedicated PE protocol with thin cut coronal MIPS 3-D reconstruction. One or more of the following individualized dose reduction techniques were utilized for this examination: 1. Automated exposure control 2. Adjustment of the mA and/or kV according to patient size 3. Use of iterative reconstruction technique. FINDINGS: Contrast bolus is adequate. There is subtotally occlusive filling defect within the posterior basal segmental pulmonary artery the right lower lobe. There is also filling defect involving the medial basal segmental pulmonary artery subsegmental branches of the left lower lobe are not well evaluated due to adjacent airspace disease. The upper lobe grossly patent no apparent filling defect in the right middle lobe or lingular segmental airways. No central embolus or saddle embolus. Heart size is within normal limits. No pericardial effusion. No mediastinal, hilar or axillary lymphadenopathy. Thyroid gland is unremarkable. Central airways are patent. Patchy airspace disease in the bilateral lower lobes, left greater than right. There is a small left pleural effusion. Lungs are otherwise clear. No pneumothorax. Limited images of the upper abdomen are unremarkable. No acute bony abnormality. IMPRESSION: 1. Study is positive for pulmonary embolus involving the basilar segmental right lower lobe pulmonary arteries. There is also possible involvement of the subsegmental branches at the left base. No central or saddle embolus. 2. Patchy bibasilar airspace disease, left greater than right, atelectasis versus pneumonia. 3. Small left pleural effusion. Results discussed with ER physician at approximately 3:17 PM on the day of study Electronically signed by: Darrell Cleveland MD (04/21/2020 3:21 PM) [facility]
--- NOTE | 2020-04-21 16:23 | PDOC1 ---
History and Physical Date of Admission Date of Admission DATE: 04/21/20 TIME: 16:20 Identification/Chief Complaint Chief Complaint seen in er with dyspnea , 30 year old female at 10 weeks gestation who presents with left-sided chest tightness that started at 2:00 this morning and has not stopped. She states it is worse if she takes a deep breath and that she has some mild shortness of breath with this. She denies any URI symptoms. She has not had any cough or fever. She states she did have an episode of vomiting earlier today. cta pos for acute PE Past Medical History Past Medical History Past Medical History Past Medical History Past Medical History: No Pertinent History, Other Additional Past Medical Histor: DENTAL ABSCESS, CROHNS,NARCOTIC ABUSE/TAKES SUBOXONE Past Surgical History: No Surgical History Smoking Status: Current Every Day Smoker Alcohol Use: None Drug Use: None fhx copd Psych: Addictions Endocrine: Diabetes Dermatology: No pertinent hx Family History Family History: High Cholestrol, Hypertension Social History Smoke: <1 pack per day ALCOHOL: none Drugs: None Current Problem List Problem List Problems Medical Problems: (1) Chest pain Status: Acute Current Medications Current Medications Current Medications Multi-Ingredient Mouthwash/Gargle (Gi Cocktail) 20 ml 1X ONCE SWSW Last ad ministered on 04/21/20at 12:28; Start 04/21/20 at 12:00; Stop 04/21/20 at 12:01; Status DC Acetaminophen (Tylenol) 1,000 mg 1X ONCE PO Last administered on 04/21/20at 12:28; Start 04/21/20 at 12:00; Stop 04/21/20 at 12:01; Status DC Ondansetron HCl (Zofran Odt) 4 mg 1X ONCE PO Last administered on 04/21/20at 12:28; Start 04/21/20 at 12:45; Stop 04/21/20 at 12:46; Status DC Ondansetron HCl (Zofran Odt) 4 mg STK-MED ONCE .ROUTE ; Start 04/21/20 at 12:26; Stop 04/21/20 at 12:26; Status DC Iohexol (Omnipaque 350 Mg/ml) 90 ml 1X ONCE IV Last administered on 04/21/20at 14:54; Start 04/21/20 at 15:00; Stop 8/6/20 at 15:03; Status DC Info (CONTRAST GIVEN -- Rx MONITORING) 1 each PRN DAILY PRN MC SEE COMMENTS; Start 04/21/20 at 15:15; Stop 04/23/20 at 15:14 Enoxaparin Sodium (Lovenox 60mg Syringe) 60 mg 1X ONCE SQ ; Start 04/21/20 at 16:15; Stop 04/21/20 at 16:16; Status DC Active Scripts Active Compazine (Prochlorperazine Maleate) 10 Mg Tablet 1 Tab PO Q6HRS Macrobid 100 Mg Capsule (Nitrofurantoin Monohyd/M-Cryst) 100 Mg Capsule 1 Cap PO BID 7 Days 19 Chewable Tablet (Pnv No.115/Iron Fumarate/Fa) 1 Each Tab.chew 1 Tab PO DAILY 30 Days Vitamin B-6 (Pyridoxine Hcl) 250 Mg Tablet 1 Tab PO TID 30 Days Zofran (Ondansetron Hcl) 4 Mg Tablet 1 Tab PO PRN Q6-8HRS Bisacodyl 5 Mg Tablet.dr 5 Mg PO PRN DAILY PRN 3 Days Cetirizine Hcl 10 Mg Tablet 1 Tab PO DAILY Prochlorperazine Maleate 25 Mg Supp.rect 25 Mg RC Q8HRS PRN Clonidine Hcl 0.1 Mg Tablet 0.1 Mg PO Q8HRS PRN Augmentin 875-125 Tablet (Amoxicillin/Potassium Clav) 1 Each Tablet 1 Tab PO BID 7 Days Allergies Allergies: Coded Allergies: Penicillins (Verified Allergy, Unknown, N/V/D, 03/24/20) ROS Review of System Review of Systems: Review of Systems: General: Denies fever, chills, sweats, fatigue Eyes: Denies drainage, blurred vision, eye redness HENT: Denies rhinorrhea, sore throat, earache Respiratory: Denies cough, wheezing. Reports shortness of breath Cardiac: MILD ANKLE edema, palpitations.reports chest pain GI: Denies abdominal pain, Nausea, vomiting MSK: Denies back pain, neck pain Skin: Denies rash, jaundice Neuro: Denies headache, dizziness 14 PT ROS OTHERWISE NEG Hematological and Lymphatic: No: Bleeding Problems, Blood Clots, Blood Transfusions, Brusing, Night Sweats, Pallor, Swollen Lymph Nodes, Other Respiratory: YES: Shortness of breath, SOB with excertion; No: Cough, Hemoptysis, Orthopnea, Pleuritic Pain, Sputum Changes, Stridor, Tachypnea, Wheezing, Other Cardiovascular: yes Chest Pain Gastrointestinal: Yes Nausea, Yes Vomiting; No Abdominal Pain, No Diarrhea, No Constipation, No Melena, No Hematochezia, No Other Musculoskeletal: No Gait Disturbance, No Joint Pain, No Joint Stiffness, No Joint Swelling, No Muscle Pain, No Muscular Weakness, No Pain In:, No Swelling In:, No Other Neurological: No Behavorial Changes, No Bowel/Bladder ControlChng, No Confusion, No Dizziness, No Gait Disturbance, No Headaches, No Impaired Coord/balance, No Memory Loss, No Numbness/Tingling, No Seizures, No Speech Problems, No Tremors, No Visual Changes, No Weakness, No Other Physical Exam Physical Exam General: Awake, alert, NAD. Well Nourished, well hydrated. Cooperative HEENT: Atraumatic, EOMI, PERRL, airway patent, moist oral mucosa Neck: Supple, trachea midline Respiratory: CTA bilaterally, normal effort, no wheezing/crackles CV: RRR, no murmur, cap refill <2 GI: Soft, nondistended, nontender, no masses MSK: No obvious deformities Skin: Warm, dry, intact Neuro: A&O x3, speech NL, sensory and motor grossly intact, no focal deficits General: Alert, Oriented X3, Cooperative, No acute distress HEENT: Atraumatic, PERRLA, EOMI, Mucous membr. moist/pink Lungs: Clear to auscultation Heart: S1S2, RRR Breasts: Not examined Abdomen: Normal bowel sounds, Soft Rectal Exam: not examined PELVIC: Examination not indicated Extremities: No cyanosis Neuro: Normal speech, Strength at 5/5 X4 ext, Sensation intact, Cranial nerves 3-12 NL Psych/Mental Status: Mental status NL, Mood NL Vitals Vitals Vital Signs Date Time Temp Pulse Resp B/P (MAP) Pulse Ox O2 Delivery O2 Flow Rate FiO2 04/21/20 14:33 77 97/56 (70) 100 Room Air 04/21/20 11:00 99.2 16 99.2 Labs Labs Laboratory Tests Test 04/21/20 11:05 04/21/20 12:10 Urine Collection Type Void Urine Color Rashida Urine Clarity Clear Urine pH 7.5 (<5.0-8.0) Urine Specific [place]olia 1.025 (1.000-1.030) Urine Protein Negative mg/dL (NEG-TRACE) Urine Glucose (UA) Negative mg/dL (NEG) Urine Ketones (Stick) Negative mg/dL (NEG) Urine Blood Negative (NEG) Urine Nitrite Negative (NEG) Urine Bilirubin Negative (NEG) Urine Urobilinogen Dipstick 0.2 mg/dL (0.2 mg/dL) Urine Leukocyte Esterase Negative (NEG) Urine RBC 0 /HPF (0-2) Urine WBC 1-4 /HPF (0-4) Urine Squamous Epithelial Cells Many /LPF Urine Amorphous Sediment Present /HPF Urine Bacteria Moderate /HPF (0-FEW) Urine Mucus Mod /LPF Urine Test Positive (NEG) White Blood Count 13.4 x10^3/uL (4.0-11.0) Red Blood Count 4.05 x10^6/uL (3.50-5.40) Hemoglobin 12.3 g/dL (12.0-15.5) Hematocrit 36.8 % (36.0-47.0) Mean Corpuscular Volume 91 fL (79-100) Mean Corpuscular Hemoglobin 30 pg (25-35) Mean Corpuscular Hemoglobin Concent 33 g/dL (31-37) Red Cell Distribution Width 13.1 % (11.5-14.5) Platelet Count 224 x10^3/uL (140-400) Neutrophils (%) (Auto) 81 % (31-73) Lymphocytes (%) (Auto) 13 % (24-48) Monocytes (%) (Auto) 6 % (0-9) Eosinophils (%) (Auto) 0 % (0-3) Basophils (%) (Auto) 0 % (0-3) Neutrophils # (Auto) 10.8 x10^3/uL (1.8-7.7) Lymphocytes # (Auto) 1.7 x10^3/uL (1.0-4.8) Monocytes # (Auto) 0.8 x10^3/uL (0.0-1.1) Eosinophils # (Auto) 0.0 x10^3/uL (0.0-0.7) Basophils # (Auto) 0.0 x10^3/uL (0.0-0.2) D-Dimer (Rachel) 2.76 ug/mlFEU (0.00-0.50) Sodium Level 135 mmol/L (136-145) Potassium Level 3.7 mmol/L (3.5-5.1) Chloride Level 101 mmol/L (98-107) Carbon Dioxide Level 25 mmol/L (21-32) Anion Gap 9 (6-14) Blood Urea Nitrogen 5 mg/dL (7-20) Creatinine 0.5 mg/dL (0.6-1.0) Estimated GFR (Cockcroft-Gault) 174.1 BUN/Creatinine Ratio 10 (6-20) Glucose Level 76 mg/dL (70-99) Calcium Level 9.0 mg/dL (8.5-10.1) Total Bilirubin 0.4 mg/dL (0.2-1.0) Aspartate Amino Transf (AST/SGOT) 18 U/L (15-37) Alanine Aminotransferase (ALT/SGPT) 16 U/L (14-59) Alkaline Phosphatase 27 U/L (46-116) Troponin I Quantitative < 0.017 ng/mL (0.000-0.055) Total Protein 6.5 g/dL (6.4-8.2) Albumin 3.2 g/dL (3.4-5.0) Albumin/Globulin Ratio 1.0 (1.0-1.7) Laboratory Tests Test 04/21/20 11:05 04/21/20 12:10 Urine Collection Type Void Urine Color Rashida Urine Clarity Clear Urine pH 7.5 (<5.0-8.0) Urine Specific [place] 1.025 (1.000-1.030) Urine Protein Negative mg/dL (NEG-TRACE) Urine Glucose (UA) Negative mg/dL (NEG) Urine Ketones (Stick) Negative mg/dL (NEG) Urine Blood Negative (NEG) Urine Nitrite Negative (NEG) Urine Bilirubin Negative (NEG) Urine Urobilinogen Dipstick 0.2 mg/dL (0.2 mg/dL) Urine Leukocyte Esterase Negative (NEG) Urine RBC 0 /HPF (0-2) Urine WBC 1-4 /HPF (0-4) Urine Squamous Epithelial Cells Many /LPF Urine Amorphous Sediment Present /HPF Urine Bacteria Moderate /HPF (0-FEW) Urine Mucus Mod /LPF Urine Test Positive (NEG) White Blood Count 13.4 x10^3/uL (4.0-11.0) Red Blood Count 4.05 x10^6/uL (3.50-5.40) Hemoglobin 12.3 g/dL (12.0-15.5) Hematocrit 36.8 % (36.0-47.0) Mean Corpuscular Volume 91 fL (79-100) Mean Corpuscular Hemoglobin 30 pg (25-35) Mean Corpuscular Hemoglobin Concent 33 g/dL (31-37) Red Cell Distribution Width 13.1 % (11.5-14.5) Platelet Count 224 x10^3/uL (140-400) Neutrophils (%) (Auto) 81 % (31-73) Lymphocytes (%) (Auto) 13 % (24-48) Monocytes (%) (Auto) 6 % (0-9) Eosinophils (%) (Auto) 0 % (0-3) Basophils (%) (Auto) 0 % (0-3) Neutrophils # (Auto) 10.8 x10^3/uL (1.8-7.7) Lymphocytes # (Auto) 1.7 x10^3/uL (1.0-4.8) Monocytes # (Auto) 0.8 x10^3/uL (0.0-1.1) Eosinophils # (Auto) 0.0 x10^3/uL (0.0-0.7) Basophils # (Auto) 0.0 x10^3/uL (0.0-0.2) D-Dimer (Rachel) 2.76 ug/mlFEU (0.00-0.50) Sodium Level 135 mmol/L (136-145) Potassium Level 3.7 mmol/L (3.5-5.1) Chloride Level 101 mmol/L (98-107) Carbon Dioxide Level 25 mmol/L (21-32) Anion Gap 9 (6-14) Blood Urea Nitrogen 5 mg/dL (7-20) Creatinine 0.5 mg/dL (0.6-1.0) Estimated GFR (Cockcroft-Gault) 174.1 BUN/Creatinine Ratio 10 (6-20) Glucose Level 76 mg/dL (70-99) Calcium Level 9.0 mg/dL (8.5-10.1) Total Bilirubin 0.4 mg/dL (0.2-1.0) Aspartate Amino Transf (AST/SGOT) 18 U/L (15-37) Alanine Aminotransferase (ALT/SGPT) 16 U/L (14-59) Alkaline Phosphatase 27 U/L (46-116) Troponin I Quantitative < 0.017 ng/mL (0.000-0.055) Total Protein 6.5 g/dL (6.4-8.2) Albumin 3.2 g/dL (3.4-5.0) Albumin/Globulin Ratio 1.0 (1.0-1.7) Images Images Left lower extremity venous Doppler dated 04/21/2020. No comparison available. Clinical indication: Swelling left leg. Pain. FINDINGS: Grayscale, color-flow and spectral waveform analysis performed to include the deep venous system of the left lower extremity. There is normal compressibility, phasicity and augmentation of flow throughout. No filling defects are seen. IMPRESSION: No evidence of left lower extremity deep vein thrombosis. Electronically signed by: Darrell Cleveland MD (04/21/2020 4:41 PM) [facility] [place] DICTATED and SIGNED BY: DARRELL CLEVELAND MD DATE: 04/21/20 1641 CTA chest with contrast dated 04/21/2020. No comparison available. CLINICAL INDICATION: Chest pain shortness of breath and elevated d-dimer. TECHNIQUE: Contiguous axial imaging the chest performed following the intravenous administration of 90 cc Omnipaque 350. Study was performed as dedicated PE protocol with thin cut coronal MIPS 3-D reconstruction. One or more of the following individualized dose reduction techniques were utilized for this examination: 1. Automated exposure control 2. Adjustment of the mA and/or kV according to patient size 3. Use of iterative reconstruction technique. FINDINGS: Contrast bolus is adequate. There is subtotally occlusive filling defect within the posterior basal segmental pulmonary artery the right lower lobe. There is also filling defect involving the medial basal segmental pulmonary artery subsegmental branches of the left lower lobe are not well evaluated due to adjacent airspace disease. The upper lobe grossly patent no apparent filling defect in the right middle lobe or lingular segmental airways. No central embolus or saddle embolus. Heart size is within normal limits. No pericardial effusion. No mediastinal, hilar or axillary lymphadenopathy. Thyroid gland is unremarkable. Central airways are patent. Patchy airspace disease in the bilateral lower lobes, left greater than right. There is a small left pleural effusion. Lungs are otherwise clear. No pneumothorax. Limited images of the upper abdomen are unremarkable. No acute bony abnormality. IMPRESSION: 1. Study is positive for pulmonary embolus involving the basilar segmental right lower lobe pulmonary arteries. There is also possible involvement of the subsegmental branches at the left base. No central or saddle embolus. 2. Patchy bibasilar airspace disease, left greater than right, atelectasis versus pneumonia. 3. Small left pleural effusion. Results discussed with ER physician at approximately 3:17 PM on the day of study Electronically signed by: Darrell Cleveland MD (04/21/2020 3:21 PM) [facility] [place] DICTATED and SIGNED BY: DARRELL CLEVELAND MD DATE: 04/21/20 1521 VTE Prophylaxis Ordered VTE Prophylaxis Devices: No VTE Pharmacological Prophylaxi: Yes Assessment/Plan Assessment/Plan IMPRESSION: 1. acute pulmonary embolus involving the basilar segmental right lower lobe pulmonary arteries. There is also possible involvement of subsegmental branches at the left base. No central or saddle embolus. 2. Patchy bibasilar airspace disease, left greater than right, atelectasis versus pneumonia. 3. approx 10 week IUP plan admit OB CONSULT PULM CONSULT HEPARIN VS LOVENOX OB AND PULM WILL DISCUSS O2 SUPPORT VENOUS DOPPLER LEGS Smoking cessation education provided Justicifation of Admission Dx: Justifications for Admission: Justification of Admission Dx: No ANJEL PIERRE MD Apr 21, 2020 16:23
--- NOTE | 2020-04-21 16:44 | RAD ---
Left lower extremity venous Doppler dated 04/21/2020. No comparison available. Clinical indication: Swelling left leg. Pain. FINDINGS: Grayscale, color-flow and spectral waveform analysis performed to include the deep venous system of the left lower extremity. There is normal compressibility, phasicity and augmentation of flow throughout. No filling defects are seen. IMPRESSION: No evidence of left lower extremity deep vein thrombosis. Electronically signed by: Darrell lCeveland MD (04/21/2020 4:41 PM) [facility]
[2020-04-21 19:00] VITALS: BP 95/52
[2020-04-21] MEDS: IV NORMAL SALINE 1000ML BAG 1,000 ML IV SCH (19:05)
[2020-04-21] MEDS ORDERED: 0.9 % SODIUM CHLORIDE 10 ML DISP.SYRIN. IV PRN (19:15)
[2020-04-21] MEDS ORDERED: MAG HYDROX/ALUMINUM HYD/SIMETH 30 ML ORAL.SUSP PO PRN (19:15)
[2020-04-21] MEDS ORDERED: DOCUSATE SODIUM 100 MG CAPSULE. PO PRN (19:15)
[2020-04-21] MEDS ORDERED: guaiFENesin ORAL 200 MG/10 ML LIQUID. PO PRN (19:15)
[2020-04-21] MEDS ORDERED: ALBUTEROL SULFATE 2.5 MG/3 ML NEBU. NEB PRN (19:15)
[2020-04-21] MEDS ORDERED: SODIUM PHOSPHATES 19/7GM 133 ML ENEMA. PR PRN (19:15)
[2020-04-21] MEDS: ACETAMINOPHEN 325 MG TABLET. PO PRN (21:55)
[2020-04-21 23:20] VITALS: BP 91/40
[2020-04-22 03:19] VITALS: BP 93/46
[2020-04-22] MEDS: ACETAMINOPHEN 325 MG TABLET. PO PRN (03:36)
[2020-04-22] MEDS ORDERED: NITR100C62 PO (03:38)
--- NOTE | 2020-04-22 03:58 | NUR ---
Pt had been informed about the importance of having IVF more than once especially she has fever @ this time but still pt refused, claimed she wants to sleep and she'll have it a couple of hours later. Notified pt that lab will draw blood for blood culture and informed her the rationale and that iv abt has been ordered.
--- NOTE | 2020-04-22 04:13 | NUR ---
Pt REFUSED blood draw for blood cultures.
[2020-04-22] MEDS: cefTRIAXone IV Push 1 GM VIAL. IVP SCH (04:16)
[2020-04-22 07:00] VITALS: BP 107/56
[2020-04-22] MEDS ORDERED: BUPR1FIL5 SL (08:00)
[2020-04-22] MEDS: HYDROcodone/APAP 5/325MG 1 TAB TABLET PO PRN ×3 (08:28→20:34)
[2020-04-22] MEDS: IV NORMAL SALINE 1000ML BAG 1,000 ML IV SCH ×2 (08:32→15:05)
[2020-04-22] MEDS ORDERED: PRENATAL MULTIVITAMIN TABLET. PO SCH (09:00)
--- NOTE | 2020-04-22 10:11 | PDOC2 ---
CONSULT Date of Consult Date of Consult DATE: 04/22/20 TIME: 10:09 Reason for Consult Reason for Consult: , PE History of Present Illness Reason for Visit: EDC: 11/23/20 LMP: 02/08/20 HPI: 30y @ 9.2 by 8wk u/s who presented to the ER with CP. The pt states that pain began 2 days ago and became progressively worse. When she presents to the ER she was found have PE on CT. The CT found a PE involving the basilar segmental right lower lobe pulmonary arteries and possible involvement of the subsegmental branches at the left base. The pt has never had a VTE and recalls no traumatic event that would have led to the PE. She does report a strong FH on VTE (mother and aunt). The pt recently discovered she was in visit to the ER 03/24/20. On 04/17 she had an u/s that revealed her to be 8.4wga. She recently moved from [place] so has not established insurance yet. She had made an appt with [facility]. 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 SH: no tob, no EtOH Past Medical History Psych: Addictions Endocrine: Diabetes Dermatology: No pertinent hx Family History Family History: High Cholestrol, Hypertension Social History <1 pack per day ALCOHOL: none Drugs: None Current Problem List Problem List Problems Medical Problems: (1) Chest pain Status: Acute Current Medications Current Medications Current Medications Multi-Ingredient Mouthwash/Gargle (Gi Cocktail) 20 ml 1X ONCE SWSW Last administered on 04/21/20at 12:28; Start 04/21/20 at 12:00; Stop 04/21/20 at 12:01; Status DC Acetaminophen (Tylenol) 1,000 mg 1X ONCE PO Last administered on 04/21/20at 12:28; Start 04/21/20 at 12:00; Stop 04/21/20 at 12:01; Status DC Ondansetron HCl (Zofran Odt) 4 mg 1X ONCE PO Last administered on 04/21/20at 12:28; Start 04/21/20 at 12:45; Stop 04/21/20 at 12:46; Status DC Ondansetron HCl (Zofran Odt) 4 mg STK-MED ONCE .ROUTE ; Start 04/21/20 at 12:26; Stop 04/21/20 at 12:26; Status DC Iohexol (Omnipaque 350 Mg/ml) 90 ml 1X ONCE IV Last administered on 04/21/20at 14:54; Start 04/21/20 at 15:00; Stop 04/21/20 at 15:03; Status DC Info (CONTRAST GIVEN -- Rx MONITORING) 1 each PRN DAILY PRN MC SEE COMMENTS; Start 04/21/20 at 15:15; Stop 04/23/20 at 15:14 Enoxaparin Sodium (Lovenox 60mg Syringe) 60 mg 1X ONCE SQ Last administered on 04/21/20at 16:45; Start 04/21/20 at 16:15; Stop 04/21/20 at 16:16; Status DC Enoxaparin Sodium (Lovenox 60mg Syringe) 60 mg Q12HR SQ Last administered on 04/22/20at 08:29; Start 04/21/20 at 21:00 Multivit/ Folic Acid/Iron (Multivitamin ) 1 tab DAILY PO ; Start 04/22/20 at 09:00 Sodium Chloride (Normal Saline Flush) 3 ml QSHIFT PRN IV AFTER MEDS AND BLOOD DRAWS; Start 04/21/20 at 19:15 Sodium Chloride 1,000 ml @ 100 mls/hr Q10H IV Last administered on 04/22/20at 08:32; Start 04/21/20 at 19:05 Acetaminophen (Tylenol) 650 mg PRN Q4HRS PRN PO TEMP OVER 100.4F OR MILD PAIN Last administered on 04/22/20at 03:36; Start 04/21/20 at 19:15 Al Hydroxide/Mg Hydroxide (Mylanta Plus Xs) 30 ml PRN DAILY PRN PO HEARTBURN / GAS; Start 04/21/20 at 19:15 Sodium Monofluorophosphate (Fleet Adult) 133 ml PRN DAILY PRN IN CONSTIPATION; Start 04/21/20 at 19:15 Docusate Sodium (Colace) 100 mg PRN BID PRN PO HARD STOOLS; Start 04/21/20 at 19:15 Albuterol Sulfate (Ventolin Neb Soln) 2.5 mg PRN Q4HRS PRN NEB SHORTNESS OF BREATH; Start 04/21/20 at 19:15 Guaifenesin (Robitussin) 200 mg PRN Q4HRS PRN PO COUGH; Start 04/21/20 at 19:15 Ceftriaxone Sodium (Rocephin) 1 gm Q24H IVP Last administered on 04/22/20at 04:16; Start 04/22/20 at 04:00 Acetaminophen/ Hydrocodone Bitart (Lortab 5/325) 1 tab PRN Q6HRS PRN PO MODERATE - SEVERE PAIN Last administered on 04/22/20at 08:28; Start 04/22/20 at 08:00 Active Scripts Active Compazine (Prochlorperazine Maleate) 10 Mg Tablet 1 Tab PO Q6HRS 19 Chewable Tablet (Pnv No.115/Iron Fumarate/Fa) 1 Each Tab.chew 1 Tab PO DAILY 30 Days Zofran (Ondansetron Hcl) 4 Mg Tablet 1 Tab PO PRN Q6-8HRS Bisacodyl 5 Mg Tablet.dr 5 Mg PO PRN DAILY PRN 3 Days Cetirizine Hcl 10 Mg Tablet 1 Tab PO DAILY Prochlorperazine Maleate 25 Mg Supp.rect 25 Mg RC Q8HRS PRN Reported Suboxone 8 Mg-2 Mg Sl Film (Buprenorphine Hcl/Naloxone Hcl) 1 Each Film 1 Strip SL BID MDD 1 Strip(s) 30 Days Macrobid 100 Mg Capsule (Nitrofurantoin Monohyd/M-Cryst) 100 Mg Capsule 1 Cap PO BID 7 Days Allergies Allergies: Coded Allergies: Penicillins (Verified Allergy, Unknown, N/V/D, 03/24/20) Physical Exam General: Alert, Oriented X3, Cooperative, No acute distress HEENT: PERRLA, Mucous membr. moist/pink Heart: Regular rate, Normal S1, Normal S2, No murmurs Abdomen: Normal bowel sounds, Soft, No tenderness, No hepatosplenomegaly, No masses Extremities: No clubbing, No cyanosis, No edema, Normal pulses, No tenderness/swelling Skin: No rashes, No breakdown Neuro: Normal gait, Normal speech, Normal tone, Sensation intact, Reflexes 2+ Psych/Mental Status: Mental status NL, Mood NL Vitals VITALS Vital Signs Date Time Temp Pulse Resp B/P (MAP) Pulse Ox O2 Delivery O2 Flow Rate FiO2 04/22/20 08:28 16 Room Air 04/22/20 07:00 98.5 86 107/56 (73) 97 98.5 04/21/20 23:20 95.0 Labs Labs Laboratory Tests Test 04/21/20 11:05 04/21/20 12:10 Urine Collection Type Void Urine Color Rashida Urine Clarity Clear Urine pH 7.5 (<5.0-8.0) Urine Specific [place] 1.025 (1.000-1.030) Urine Protein Negative mg/dL (NEG-TRACE) Urine Glucose (UA) Negative mg/dL (NEG) Urine Ketones (Stick) Negative mg/dL (NEG) Urine Blood Negative (NEG) Urine Nitrite Negative (NEG) Urine Bilirubin Negative (NEG) Urine Urobilinogen Dipstick 0.2 mg/dL (0.2 mg/dL) Urine Leukocyte Esterase Negative (NEG) Urine RBC 0 /HPF (0-2) Urine WBC 1-4 /HPF (0-4) Urine Squamous Epithelial Cells Many /LPF Urine Amorphous Sediment Present /HPF Urine Bacteria Moderate /HPF (0-FEW) Urine Mucus Mod /LPF Urine Test Positive (NEG) White Blood Count 13.4 x10^3/uL (4.0-11.0) Red Blood Count 4.05 x10^6/uL (3.50-5.40) Hemoglobin 12.3 g/dL (12.0-15.5) Hematocrit 36.8 % (36.0-47.0) Mean Corpuscular Volume 91 fL (79-100) Mean Corpuscular Hemoglobin 30 pg (25-35) Mean Corpuscular Hemoglobin Concent 33 g/dL (31-37) Red Cell Distribution Width 13.1 % (11.5-14.5) Platelet Count 224 x10^3/uL (140-400) Neutrophils (%) (Auto) 81 % (31-73) Lymphocytes (%) (Auto) 13 % (24-48) Monocytes (%) (Auto) 6 % (0-9) Eosinophils (%) (Auto) 0 % (0-3) Basophils (%) (Auto) 0 % (0-3) Neutrophils # (Auto) 10.8 x10^3/uL (1.8-7.7) Lymphocytes # (Auto) 1.7 x10^3/uL (1.0-4.8) Monocytes # (Auto) 0.8 x10^3/uL (0.0-1.1) Eosinophils # (Auto) 0.0 x10^3/uL (0.0-0.7) Basophils # (Auto) 0.0 x10^3/uL (0.0-0.2) D-Dimer (Rachel) 2.76 ug/mlFEU (0.00-0.50) Sodium Level 135 mmol/L (136-145) Potassium Level 3.7 mmol/L (3.5-5.1) Chloride Level 101 mmol/L (98-107) Carbon Dioxide Level 25 mmol/L (21-32) Anion Gap 9 (6-14) Blood Urea Nitrogen 5 mg/dL (7-20) Creatinine 0.5 mg/dL (0.6-1.0) Estimated GFR (Cockcroft-Gault) 174.1 BUN/Creatinine Ratio 10 (6-20) Glucose Level 76 mg/dL (70-99) Calcium Level 9.0 mg/dL (8.5-10.1) Total Bilirubin 0.4 mg/dL (0.2-1.0) Aspartate Amino Transf (AST/SGOT) 18 U/L (15-37) Alanine Aminotransferase (ALT/SGPT) 16 U/L (14-59) Alkaline Phosphatase 27 U/L (46-116) Troponin I Quantitative < 0.017 ng/mL (0.000-0.055) Total Protein 6.5 g/dL (6.4-8.2) Albumin 3.2 g/dL (3.4-5.0) Albumin/Globulin Ratio 1.0 (1.0-1.7) Laboratory Tests Test 04/21/20 11:05 04/21/20 12:10 Urine Collection Type Void Urine Color Rashida Urine Clarity Clear Urine pH 7.5 (<5.0-8.0) Urine Specific [place] 1.025 (1.000-1.030) Urine Protein Negative mg/dL (NEG-TRACE) Urine Glucose (UA) Negative mg/dL (NEG) Urine Ketones (Stick) Negative mg/dL (NEG) Urine Blood Negative (NEG) Urine Nitrite Negative (NEG) Urine Bilirubin Negative (NEG) Urine Urobilinogen Dipstick 0.2 mg/dL (0.2 mg/dL) Urine Leukocyte Esterase Negative (NEG) Urine RBC 0 /HPF (0-2) Urine WBC 1-4 /HPF (0-4) Urine Squamous Epithelial Cells Many /LPF Urine Amorphous Sediment Present /HPF Urine Bacteria Moderate /HPF (0-FEW) Urine Mucus Mod /LPF Urine Test Positive (NEG) White Blood Count 13.4 x10^3/uL (4.0-11.0) Red Blood Count 4.05 x10^6/uL (3.50-5.40) Hemoglobin 12.3 g/dL (12.0-15.5) Hematocrit 36.8 % (36.0-47.0) Mean Corpuscular Volume 91 fL (79-100) Mean Corpuscular Hemoglobin 30 pg (25-35) Mean Corpuscular Hemoglobin Concent 33 g/dL (31-37) Red Cell Distribution Width 13.1 % (11.5-14.5) Platelet Count 224 x10^3/uL (140-400) Neutrophils (%) (Auto) 81 % (31-73) Lymphocytes (%) (Auto) 13 % (24-48) Monocytes (%) (Auto) 6 % (0-9) Eosinophils (%) (Auto) 0 % (0-3) Basophils (%) (Auto) 0 % (0-3) Neutrophils # (Auto) 10.8 x10^3/uL (1.8-7.7) Lymphocytes # (Auto) 1.7 x10^3/uL (1.0-4.8) Monocytes # (Auto) 0.8 x10^3/uL (0.0-1.1) Eosinophils # (Auto) 0.0 x10^3/uL (0.0-0.7) Basophils # (Auto) 0.0 x10^3/uL (0.0-0.2) D-Dimer (Rachel) 2.76 ug/mlFEU (0.00-0.50) Sodium Level 135 mmol/L (136-145) Potassium Level 3.7 mmol/L (3.5-5.1) Chloride Level 101 mmol/L (98-107) Carbon Dioxide Level 25 mmol/L (21-32) Anion Gap 9 (6-14) Blood Urea Nitrogen 5 mg/dL (7-20) Creatinine 0.5 mg/dL (0.6-1.0) Estimated GFR (Cockcroft-Gault) 174.1 BUN/Creatinine Ratio 10 (6-20) Glucose Level 76 mg/dL (70-99) Calcium Level 9.0 mg/dL (8.5-10.1) Total Bilirubin 0.4 mg/dL (0.2-1.0) Aspartate Amino Transf (AST/SGOT) 18 U/L (15-37) Alanine Aminotransferase (ALT/SGPT) 16 U/L (14-59) Alkaline Phosphatase 27 U/L (46-116) Troponin I Quantitative < 0.017 ng/mL (0.000-0.055) Total Protein 6.5 g/dL (6.4-8.2) Albumin 3.2 g/dL (3.4-5.0) Albumin/Globulin Ratio 1.0 (1.0-1.7) Assessment/Plan Assessment/Plan Assessment: 30y @ 9.2 by 8wk u/s with PE Recommendation: 1.) PE on Lovenox (1 mg/kg every 12 hours), will need to continue Subcutaneous LMWH for at least 3-6 months. Discussed implications on the with pt. Discussed that at some point she will need to see a Maternal Medicine physician. This can be done as an outpt. Their greatest value will be in making recommendations for labor and counseling on delivery location. 2.) Crohns disease currently no meds, no h/o surgery, has not established with local GI 3.) Suboxone use 4.) Fetus wkly NSTs 5.) Will continue to follow SARAH BETH LY MD Apr 22, 2020 10:11
--- NOTE | 2020-04-22 10:22 | NUR ---
SS following for discharge planning. SS reviewed pt chart and discussed with pt RN. Pt is from home and is currently on room air. Pt on IV Rocephin. Pt 10 weeks with PE. Pt self pay. SS discussed with [employer] and requested Medicaid application. SS will continue to follow for discharge planning.
[2020-04-22 11:00] VITALS: BP 102/63
[2020-04-22] MEDS: PRENATAL VITAMIN PO SCH (11:24)
--- NOTE | 2020-04-22 11:27 | PDOC ---
[employer] PROGRESS NOTE Date of Service DOS: DATE: 04/22/20 TIME: 11:16 Chief Complaint Chief Complaint Pulmonary embolism Sariah 10 wks gestation Crohn's Disease Narcotic abuse History of Present Illness History of Present Illness 04/22/2020 Patient seen and examined Patient in NAD on room air Discussed DVT prophylaxis Discussed with RN Chart reviewed Vitals/I&O Vitals/I&O: Vital Signs Date Time Temp Pulse Resp B/P (MAP) Pulse Ox O2 Delivery O2 Flow Rate FiO2 04/22/20 08:28 16 Room Air 04/22/20 07:00 98.5 86 107/56 (73) 97 98.5 04/21/20 23:20 95.0 I & O 04/21/20 04/21/20 04/22/20 15:00 23:00 07:00 Intake Total 0 ml 180 ml Output Total 400 ml Balance 0 ml -220 ml Physical Exam General: Alert, Oriented X3, Cooperative, No acute distress Heart: Regular rate, Normal S1, Normal S2, No murmurs Abdomen: Normal bowel sounds, Soft, No tenderness, No hepatosplenomegaly, No masses Extremities: No clubbing, No cyanosis, No edema, Normal pulses, No tenderness/swelling Skin: No rashes, No breakdown Labs Labs: Laboratory Tests Test 04/21/20 12:10 White Blood Count 13.4 x10^3/uL (4.0-11.0) Red Blood Count 4.05 x10^6/uL (3.50-5.40) Hemoglobin 12.3 g/dL (12.0-15.5) Hematocrit 36.8 % (36.0-47.0) Mean Corpuscular Volume 91 fL (79-100) Mean Corpuscular Hemoglobin 30 pg (25-35) Mean Corpuscular Hemoglobin Concent 33 g/dL (31-37) Red Cell Distribution Width 13.1 % (11.5-14.5) Platelet Count 224 x10^3/uL (140-400) Neutrophils (%) (Auto) 81 % (31-73) Lymphocytes (%) (Auto) 13 % (24-48) Monocytes (%) (Auto) 6 % (0-9) Eosinophils (%) (Auto) 0 % (0-3) Basophils (%) (Auto) 0 % (0-3) Neutrophils # (Auto) 10.8 x10^3/uL (1.8-7.7) Lymphocytes # (Auto) 1.7 x10^3/uL (1.0-4.8) Monocytes # (Auto) 0.8 x10^3/uL (0.0-1.1) Eosinophils # (Auto) 0.0 x10^3/uL (0.0-0.7) Basophils # (Auto) 0.0 x10^3/uL (0.0-0.2) D-Dimer (Rachel) 2.76 ug/mlFEU (0.00-0.50) Sodium Level 135 mmol/L (136-145) Potassium Level 3.7 mmol/L (3.5-5.1) Chloride Level 101 mmol/L (98-107) Carbon Dioxide Level 25 mmol/L (21-32) Anion Gap 9 (6-14) Blood Urea Nitrogen 5 mg/dL (7-20) Creatinine 0.5 mg/dL (0.6-1.0) Estimated GFR (Cockcroft-Gault) 174.1 BUN/Creatinine Ratio 10 (6-20) Glucose Level 76 mg/dL (70-99) Calcium Level 9.0 mg/dL (8.5-10.1) Total Bilirubin 0.4 mg/dL (0.2-1.0) Aspartate Amino Transf (AST/SGOT) 18 U/L (15-37) Alanine Aminotransferase (ALT/SGPT) 16 U/L (14-59) Alkaline Phosphatase 27 U/L (46-116) Troponin I Quantitative < 0.017 ng/mL (0.000-0.055) Total Protein 6.5 g/dL (6.4-8.2) Albumin 3.2 g/dL (3.4-5.0) Albumin/Globulin Ratio 1.0 (1.0-1.7) Assessment and Plan Assessmemt and Plan Problems Medical Problems: (1) Chest pain Status: Acute ASSESSMENT Pulmonary embolism PLAN Supplemental oxygen PRN Lovenox for DVT prophylaxis Home meds Telemetry monitoring Full code Appreciate OB and pulmonary input Smoking cessation education provided Follow-up with OB as outpatient Comment Review of Relevant I have reviewed the following items kulwinder (where applicable) has been applied. Medications: Current Medications Medications (Trade) Dose Ordered Sig/Ju Route PRN Reason Start Time Stop Time Status Last Admin Dose Admin Multi-Ingredient Mouthwash/Gargle (Gi Cocktail) 20 ml 1X ONCE SWSW 04/21/20 12:00 04/21/20 12:01 DC 04/21/20 12:28 Acetaminophen (Tylenol) 1,000 mg 1X ONCE PO 04/21/20 12:00 04/21/20 12:01 DC 04/21/20 12:28 Ondansetron HCl (Zofran Odt) 4 mg 1X ONCE PO 04/21/20 12:45 04/21/20 12:46 DC 04/21/20 12:28 Iohexol (Omnipaque 350 Mg/ml) 90 ml 1X ONCE IV 04/21/20 15:00 04/21/20 15:03 DC 04/21/20 14:54 Enoxaparin Sodium (Lovenox 60mg Syringe) 60 mg 1X ONCE SQ 04/21/20 16:15 04/21/20 16:16 DC 04/21/20 16:45 Enoxaparin Sodium (Lovenox 60mg Syringe) 60 mg Q12HR SQ 04/21/20 21:00 04/22/20 08:29 Sodium Chloride 1,000 ml @ 100 mls/hr Q10H IV 04/21/20 19:05 04/22/20 08:32 Acetaminophen (Tylenol) 650 mg PRN Q4HRS PRN PO TEMP OVER 100.4F OR MILD PAIN 04/21/20 19:15 04/22/20 03:36 Ceftriaxone Sodium (Rocephin) 1 gm Q24H IVP 04/22/20 04:00 04/22/20 04:16 Acetaminophen/ Hydrocodone Bitart (Lortab 5/325) 1 tab PRN Q6HRS PRN PO MODERATE - SEVERE PAIN 04/22/20 08:00 04/22/20 08:28 Justicifation of Admission Dx: Justifications for Admission: Justification of Admission Dx: MATIAS Gaona III DO Apr 22, 2020 11:27
--- NOTE | 2020-04-22 11:39 | CONS ---
DATE OF CONSULTATION: 04/22/2020 PULMONARY CONSULTATION ATTENDING PHYSICIAN: Deshaun Patterson MD REASON FOR CONSULTATION: Pulmonary embolism and . HISTORY OF PRESENT ILLNESS: The patient is a 30-year-old -Pak[place] female who is in her first trimester of . This is her second . She presented to the hospital with left-sided chest tightness and also midsternal. She has some pleuritic chest pain. She had some mild shortness of breath. The patient has been nauseous with her lately. No diarrhea. Denies any cough, fever or chills. The patient was seen in the Emergency Room and a CTA chest was performed. I have reviewed the CT chest. She has bibasilar distal pulmonary emboli. There is also evidence of left lower lobe infiltrate and minimal on the right base, this could be infarction. There was a small left pleural effusion. Upon further questioning, the patient states her mother had DVT at age 25 and her aunt also of pulmonary embolism. She does not know whether they have any hypercoagulable state or at least they were not checked. She denies any recent travel. Denies any prolonged immobility. The patient is currently on room air and hemodynamically stable. She was started on Lovenox. I have been asked to see her for further evaluation. PAST MEDICAL HISTORY: Significant for dental abscess, Crohn's, history of narcotic use. PAST SURGICAL HISTORY: None. ALLERGIES: PENICILLIN. MEDICATIONS: Reviewed as listed in the [facility]AD including antibiotic, Rocephin and Lovenox full dose. REVIEW OF SYSTEMS: Twelve-point system obtained. Pertinent positives discussed in my history of present illness, otherwise noncontributory. All systems that were negative were reviewed as well. FAMILY HISTORY: Mother at age 25 had DVT and aunt of PE. PHYSICAL EXAMINATION: VITAL SIGNS: Her T-max of 100.6. Blood pressure stable, 107 systolic. Pulse ox 97% on room air. NECK: Supple. LUNGS: Clear. CARDIOVASCULAR: With a regular rate. ABDOMEN: Soft. EXTREMITIES: With no pitting edema. LABORATORY DATA: Reviewed. White cell count 13.4, hemoglobin 12.3 and platelets are 224. BUN 5, creatinine 0.5. Troponin less than 0.017. IMPRESSION: 1. Acute pulmonary embolism in a patient who is 10 weeks . Etiology of pulmonary embolism likely hypercoagulable state. Her mother had deep venous thrombosis at age 25 and her aunt of pulmonary embolism. She could have factor V Leiden mutation. 2. Abnormal CT chest with bibasilar infiltrates, more on the left base than on the right. No symptoms of pneumonia. Likely pulmonary infarction, but agree with current empiric antibiotic due to low-grade fever. 3. Suspected hypercoagulable state. Possible Factor V Leiden mutation. 4. A 10-week . RECOMMENDATIONS: 1. I have discussed with the patient. At this time, I would continue with Lovenox. She would require during her . I would avoid warfarin or Eliquis. 2. Venous Dopplers were negative. 3. She will need hypercoagulable workup as an outpatient since it is not available in the hospital. 4. Consult OB regarding her . 5. Since the patient has no resources at this point we will watch her for 48 hours and then once she is capable of affording Lovenox as an outpatient, we will consider discharge planning. Discussed with RN. 6. Duration of AC depends on hypercoagulable work up results. 7. If she needs AC for the entire duration of , it can be stopped 24 hrs before predicted delivery time as she may need epidural. MELVIN STONER MD DR: TANYA/kellie JOB#: [id number] / [id number] ERNESTINA
[2020-04-22 15:00] VITALS: BP 98/54
[2020-04-22 19:00] VITALS: BP 112/66
[2020-04-22 23:00] VITALS: BP 106/57
[2020-04-23] MEDS: IV NORMAL SALINE 1000ML BAG 1,000 ML IV SCH ×3 (01:05→21:44)
[2020-04-23 03:00] VITALS: BP 95/53
[2020-04-23] MEDS: HYDROcodone/APAP 5/325MG 1 TAB TABLET PO PRN (03:10)
[2020-04-23] MEDS: cefTRIAXone IV Push 1 GM VIAL. IVP SCH (05:05)
[2020-04-23 07:00] VITALS: BP 95/57
--- NOTE | 2020-04-23 07:58 | PDOC ---
PULMONARY PROGRESS NOTES DATE: 04/23/20 TIME: 07:55 Subjective sob better has some cp no cough still smokes Vitals Vital Signs Date Time Temp Pulse Resp B/P (MAP) Pulse Ox O2 Delivery O2 Flow Rate FiO2 04/23/20 04:10 16 Room Air 04/23/20 03:10 96 04/23/20 03:00 98.1 80 95/53 (67) 98.1 04/22/20 20:34 95.0 ROS: No Nausea General: Alert, Oriented X4, No acute distress HEENT: Other (nc at perrl ) Lungs: Clear Cardiovascular: S1, S2 Abdomen: Soft, Non-tender Neuro Exam: Alert Extremities: No Edema Skin: Warm Labs Laboratory Tests Test 04/21/20 11:05 04/21/20 12:10 Urine Collection Type Void Urine Color Rashida Urine Clarity Clear Urine pH 7.5 (<5.0-8.0) Urine Specific [place] 1.025 (1.000-1.030) Urine Protein Negative mg/dL (NEG-TRACE) Urine Glucose (UA) Negative mg/dL (NEG) Urine Ketones (Stick) Negative mg/dL (NEG) Urine Blood Negative (NEG) Urine Nitrite Negative (NEG) Urine Bilirubin Negative (NEG) Urine Urobilinogen Dipstick 0.2 mg/dL (0.2 mg/dL) Urine Leukocyte Esterase Negative (NEG) Urine RBC 0 /HPF (0-2) Urine WBC 1-4 /HPF (0-4) Urine Squamous Epithelial Cells Many /LPF Urine Amorphous Sediment Present /HPF Urine Bacteria Moderate /HPF (0-FEW) Urine Mucus Mod /LPF Urine Test Positive (NEG) White Blood Count 13.4 x10^3/uL (4.0-11.0) Red Blood Count 4.05 x10^6/uL (3.50-5.40) Hemoglobin 12.3 g/dL (12.0-15.5) Hematocrit 36.8 % (36.0-47.0) Mean Corpuscular Volume 91 fL (79-100) Mean Corpuscular Hemoglobin 30 pg (25-35) Mean Corpuscular Hemoglobin Concent 33 g/dL (31-37) Red Cell Distribution Width 13.1 % (11.5-14.5) Platelet Count 224 x10^3/uL (140-400) Neutrophils (%) (Auto) 81 % (31-73) Lymphocytes (%) (Auto) 13 % (24-48) Monocytes (%) (Auto) 6 % (0-9) Eosinophils (%) (Auto) 0 % (0-3) Basophils (%) (Auto) 0 % (0-3) Neutrophils # (Auto) 10.8 x10^3/uL (1.8-7.7) Lymphocytes # (Auto) 1.7 x10^3/uL (1.0-4.8) Monocytes # (Auto) 0.8 x10^3/uL (0.0-1.1) Eosinophils # (Auto) 0.0 x10^3/uL (0.0-0.7) Basophils # (Auto) 0.0 x10^3/uL (0.0-0.2) D-Dimer (Rachel) 2.76 ug/mlFEU (0.00-0.50) Sodium Level 135 mmol/L (136-145) Potassium Level 3.7 mmol/L (3.5-5.1) Chloride Level 101 mmol/L (98-107) Carbon Dioxide Level 25 mmol/L (21-32) Anion Gap 9 (6-14) Blood Urea Nitrogen 5 mg/dL (7-20) Creatinine 0.5 mg/dL (0.6-1.0) Estimated GFR (Cockcroft-Gault) 174.1 BUN/Creatinine Ratio 10 (6-20) Glucose Level 76 mg/dL (70-99) Calcium Level 9.0 mg/dL (8.5-10.1) Total Bilirubin 0.4 mg/dL (0.2-1.0) Aspartate Amino Transf (AST/SGOT) 18 U/L (15-37) Alanine Aminotransferase (ALT/SGPT) 16 U/L (14-59) Alkaline Phosphatase 27 U/L (46-116) Troponin I Quantitative < 0.017 ng/mL (0.000-0.055) Total Protein 6.5 g/dL (6.4-8.2) Albumin 3.2 g/dL (3.4-5.0) Albumin/Globulin Ratio 1.0 (1.0-1.7) Medications Active Scripts Medications Dose Route/Sig Max Daily Dose Days Date Category Suboxone 8 Mg-2 Mg Sl Film (Buprenorphine Hcl/Naloxone Hcl) 1 Each Film 1 Strip SL BID MDD 1 Strip(s) 30 04/22/20 Reported Macrobid 100 Mg Capsule (Nitrofurantoin Monohyd/M-Cryst) 100 Mg Capsule 1 Cap PO BID 7 04/22/20 Reported Compazine (Prochlorperazine Maleate) 10 Mg Tablet 1 Tab PO Q6HRS 04/17/20 Rx 19 Chewable Tablet (Pnv No.115/Iron Fumarate/Fa) 1 Each Tab.chew 1 Tab PO DAILY 30 03/24/20 Rx Zofran (Ondansetron Hcl) 4 Mg Tablet 1 Tab PO PRN Q6-8HRS 03/24/20 Rx Bisacodyl 5 Mg Tablet.dr 5 Mg PO PRN DAILY PRN 3 09/29/19 Rx Cetirizine Hcl 10 Mg Tablet 1 Tab PO DAILY 09/29/19 Rx Prochlorperazine Maleate 25 Mg Supp.rect 25 Mg RC Q8HRS PRN 09/14/19 Rx Impression . IMPRESSION: 1. Acute pulmonary embolism in a patient who is 10 weeks . Etiology of pulmonary embolism likely hypercoagulable state. Her mother had deep venous thrombosis at age 25 and her aunt of pulmonary embolism. She could have factor V Leiden mutation. 2. Abnormal CT chest with bibasilar infiltrates, more on the left base than on the right. No symptoms of pneumonia. Likely pulmonary infarction, but agree with current empiric antibiotic due to low-grade fever. 3. Suspected hypercoagulable state. Possible Factor V Leiden mutation. 4. A 10-week . 5. smoker Plan . RECOMMENDATIONS: 1. I have discussed with the patient. At this time, I would continue with Lovenox. She would require during her . no warfarin or eliquis during . 2. Venous Dopplers were negative. 3. hypercoagulable workup as an outpatient since it is not available in the hospital. 4. OB consulted regarding her . 5. she would require AC w lovenox during entire , as is hyper coag state, bridge to hep gtt when in labor 6. advised to quit smoking for ever discussed w pt and her CANDACEJulyQUINCY MD Apr 23, 2020 07:58
[2020-04-23] MEDS: PRENATAL VITAMIN PO SCH (09:12)
--- NOTE | 2020-04-23 10:26 | PDOC ---
LIGHT BULB TESTER PROGRESS NOTE Date of Service: DATE: 04/23/20 TIME: 10:23 Subjective: Pt still with CP. Feels PO pain meds no helping. Pt also reports difficulty breathing. Objective: Vital Signs: Vital Signs Date Time Temp Pulse Resp B/P (MAP) Pulse Ox O2 Delivery O2 Flow Rate FiO2 04/22/20 07:00 98.5 86 17 107/56 (73) 97 Room Air 98.5 04/22/20 20:34 95.0 Vital Signs Date Time Temp Pulse Resp B/P (MAP) Pulse Ox O2 Delivery O2 Flow Rate FiO2 04/23/20 07:00 98.0 80 16 95/57 (70) 100 Room Air 98.0 04/22/20 20:34 95.0 Physical Exam: GENERAL: No apparent distress. Alert and oriented. HEENT: Head normocephalic, atraumatic. NECK: Supple LUNGS: Clear to auscultation. HEART: RRR, S1, S2 present, pulses intact ABDOMEN: Soft, positive bowel sounds. EXTREMITIES: No cyanosis or edema. NEUROLOGIC: Normal speech, normal tone PSYCHIATRIC: Normal affect, normal mood. SKIN: No ulceration. Assessment & Plan: A/P30y @ 9.3 by 8wk u/s with PE 1.) PE on Lovenox (1 mg/kg every 12 hours), will need to continue Subcutaneous LMWH for at least 3-6 months. Will need outpt referral to M. 2.) CP - may benefit from IV pain meds. Less adverse effect on the fetus. 3.) Crohns disease currently no meds, no h/o surgery, has not established with local GI 4.) Suboxone use 5.) Fetus wkly NSTs 6.) Will continue to follow SARAH BETH LY MD Apr 23, 2020 10:26
[2020-04-23 11:00] VITALS: BP 97/58
--- NOTE | 2020-04-23 11:59 | PDOC ---
PROGRESS NOTES Date of Service: DATE: 04/23/20 TIME: 11:58 Chief Complaint Chief Complaint impression Pulmonary embolism Sariah 10 wks gestation Crohn's Disease Narcotic abuse hx History of Present Illness History of Present Illness 04/23/2020 Patient seen and examined Patient in NAD on room air Discussed DVT prophylaxis Discussed with RN Chart reviewed continue Subcutaneous LMWH for at least 3-6 months. Will need outpt referral to [facility]. Vitals Vitals Vital Signs Date Time Temp Pulse Resp B/P (MAP) Pulse Ox O2 Delivery O2 Flow Rate FiO2 04/23/20 11:00 98.2 84 16 97/58 (71) 99 Room Air 98.2 04/22/20 20:34 95.0 Physical Exam General: Alert, Oriented X3, Cooperative, No acute distress Heart: Regular rate, Normal S1, Normal S2, No murmurs Lungs: Clear Abdomen: Normal bowel sounds, Soft, No tenderness, No hepatosplenomegaly, No masses Extremities: No clubbing, No cyanosis, No edema, Normal pulses, No tenderness/swelling Skin: No rashes, No breakdown Labs LABS CTA chest with contrast dated 04/21/2020. No comparison available. CLINICAL INDICATION: Chest pain shortness of breath and elevated d-dimer. TECHNIQUE: Contiguous axial imaging the chest performed following the intravenous administration of 90 cc Omnipaque 350. Study was performed as dedicated PE protocol with thin cut coronal MIPS 3-D reconstruction. One or more of the following individualized dose reduction techniques were utilized for this examination: 1. Automated exposure control 2. Adjustment of the mA and/or kV according to patient size 3. Use of iterative reconstruction technique. FINDINGS: Contrast bolus is adequate. There is subtotally occlusive filling defect within the posterior basal segmental pulmonary artery the right lower lobe. There is also filling defect involving the medial basal segmental pulmonary artery subsegmental branches of the left lower lobe are not well evaluated due to adjacent airspace disease. The upper lobe grossly patent no apparent filling defect in the right middle lobe or lingular segmental airways. No central embolus or saddle embolus. Heart size is within normal limits. No pericardial effusion. No mediastinal, hilar or axillary lymphadenopathy. Thyroid gland is unremarkable. Central airways are patent. Patchy airspace disease in the bilateral lower lobes, left greater than right. There is a small left pleural effusion. Lungs are otherwise clear. No pneumothorax. Limited images of the upper abdomen are unremarkable. No acute bony abnormality. IMPRESSION: 1. Study is positive for pulmonary embolus involving the basilar segmental right lower lobe pulmonary arteries. There is also possible involvement of the subsegmental branches at the left base. No central or saddle embolus. 2. Patchy bibasilar airspace disease, left greater than right, atelectasis versus pneumonia. 3. Small left pleural effusion. Results discussed with ER physician at approximately 3:17 PM on the day of study Electronically signed by: Darrell Cleveland MD (04/21/2020 3:21 PM) [facility] [place]CT[place] and SIGNED BY: DARRELL CLEVELAND MD Assessment and Plan Assessmemt and Plan Problems Medical Problems: (1) Chest pain Status: Acute Comment Review of Relevant I have reviewed the following items kulwinder (where applicable) has been applied. Labs Laboratory Tests Test 04/21/20 12:10 White Blood Count 13.4 x10^3/uL (4.0-11.0) Red Blood Count 4.05 x10^6/uL (3.50-5.40) Hemoglobin 12.3 g/dL (12.0-15.5) Hematocrit 36.8 % (36.0-47.0) Mean Corpuscular Volume 91 fL (79-100) Mean Corpuscular Hemoglobin 30 pg (25-35) Mean Corpuscular Hemoglobin Concent 33 g/dL (31-37) Red Cell Distribution Width 13.1 % (11.5-14.5) Platelet Count 224 x10^3/uL (140-400) Neutrophils (%) (Auto) 81 % (31-73) Lymphocytes (%) (Auto) 13 % (24-48) Monocytes (%) (Auto) 6 % (0-9) Eosinophils (%) (Auto) 0 % (0-3) Basophils (%) (Auto) 0 % (0-3) Neutrophils # (Auto) 10.8 x10^3/uL (1.8-7.7) Lymphocytes # (Auto) 1.7 x10^3/uL (1.0-4.8) Monocytes # (Auto) 0.8 x10^3/uL (0.0-1.1) Eosinophils # (Auto) 0.0 x10^3/uL (0.0-0.7) Basophils # (Auto) 0.0 x10^3/uL (0.0-0.2) D-Dimer (Rachel) 2.76 ug/mlFEU (0.00-0.50) Sodium Level 135 mmol/L (136-145) Potassium Level 3.7 mmol/L (3.5-5.1) Chloride Level 101 mmol/L (98-107) Carbon Dioxide Level 25 mmol/L (21-32) Anion Gap 9 (6-14) Blood Urea Nitrogen 5 mg/dL (7-20) Creatinine 0.5 mg/dL (0.6-1.0) Estimated GFR (Cockcroft-Gault) 174.1 BUN/Creatinine Ratio 10 (6-20) Glucose Level 76 mg/dL (70-99) Calcium Level 9.0 mg/dL (8.5-10.1) Total Bilirubin 0.4 mg/dL (0.2-1.0) Aspartate Amino Transf (AST/SGOT) 18 U/L (15-37) Alanine Aminotransferase (ALT/SGPT) 16 U/L (14-59) Alkaline Phosphatase 27 U/L (46-116) Troponin I Quantitative < 0.017 ng/mL (0.000-0.055) Total Protein 6.5 g/dL (6.4-8.2) Albumin 3.2 g/dL (3.4-5.0) Albumin/Globulin Ratio 1.0 (1.0-1.7) Microbiology 04/21/20 Urine Culture - Final, Complete Medications Current Medications Multi-Ingredient Mouthwash/Gargle (Gi Cocktail) 20 ml 1X ONCE SWSW Last administered on 04/21/20at 12:28; Start 04/21/20 at 12:00; Stop 04/21/20 at 12:01; Status DC Acetaminophen (Tylenol) 1,000 mg 1X ONCE PO Last administered on 04/21/20at 12:28; Start 04/21/20 at 12:00; Stop 04/21/20 at 12:01; Status DC Ondansetron HCl (Zofran Odt) 4 mg 1X ONCE PO Last administered on 04/21/20at 12:28; Start 04/21/20 at 12:45; Stop 04/21/20 at 12:46; Status DC Ondansetron HCl (Zofran Odt) 4 mg STK-MED ONCE .ROUTE ; Start 04/21/20 at 12:26; Stop 04/21/20 at 12:26; Status DC Iohexol (Omnipaque 350 Mg/ml) 90 ml 1X ONCE IV Last administered on 04/21/20at 14:54; Start 04/21/20 at 15:00; Stop 04/21/20 at 15:03; Status DC Info (CONTRAST GIVEN -- Rx MONITORING) 1 each PRN DAILY PRN MC SEE COMMENTS; Start 04/21/20 at 15:15; Stop 04/23/20 at 15:14 Enoxaparin Sodium (Lovenox 60mg Syringe) 60 mg 1X ONCE SQ Last administered on 04/21/20at 16:45; Start 04/21/20 at 16:15; Stop 04/21/20 at 16:16; Status DC Enoxaparin Sodium (Lovenox 60mg Syringe) 60 mg Q12HR SQ Last administered on 04/23/20at 09:12; Start 04/21/20 at 21:00 Multivit/ Folic Acid/Iron (Multivitamin ) 1 tab DAILY PO ; Start 04/22/20 at 09:00; Stop 04/22/20 at 11:13; Status DC Sodium Chloride (Normal Saline Flush) 3 ml QSHIFT PRN IV AFTER MEDS AND BLOOD DRAWS; Start 04/21/20 at 19:15 Sodium Chloride 1,000 ml @ 100 mls/hr Q10H IV Last administered on 04/23/20at 11:28; Start 04/21/20 at 19:05 Acetaminophen (Tylenol) 650 mg PRN Q4HRS PRN PO TEMP OVER 100.4F OR MILD PAIN Last administered on 04/22/20at 03:36; Start 04/21/20 at 19:15 Al Hydroxide/Mg Hydroxide (Mylanta Plus Xs) 30 ml PRN DAILY PRN PO HEARTBURN / GAS; Start 04/21/20 at 19:15 Sodium Monofluorophosphate (Fleet Adult) 133 ml PRN DAILY PRN [place] CONSTIPATION; Start 04/21/20 at 19:15 Docusate Sodium (Colace) 100 mg PRN BID PRN PO HARD STOOLS; Start 04/21/20 at 19:15 Albuterol Sulfate (Ventolin Neb Soln) 2.5 mg PRN Q4HRS PRN NEB SHORTNESS OF BREATH; Start 04/21/20 at 19:15 Guaifenesin (Robitussin) 200 mg PRN Q4HRS PRN PO COUGH; Start 04/21/20 at 19:15 Ceftriaxone Sodium (Rocephin) 1 gm Q24H IVP Last administered on 04/23/20at 05:05; Start 04/22/20 at 04:00 Acetaminophen/ Hydrocodone Bitart (Lortab 5/325) 1 tab PRN Q6HRS PRN PO MODERATE - SEVERE PAIN Last administered on 04/23/20at 03:10; Start 04/22/20 at 08:00; Stop 04/23/20 at 10:14; Status DC Non-Formulary Medication 1 ea DAILY PO Last administered on 04/23/20at 09:12; St art 04/22/20 at 12:00 Acetaminophen/ Hydrocodone Bitart (Lortab 7.5/325) 1 tab PRN Q4HRS PRN PO MODERATE TO SEVERE PAIN; Start 04/23/20 at 10:15 Active Scripts Active Compazine (Prochlorperazine Maleate) 10 Mg Tablet 1 Tab PO Q6HRS 19 Chewable Tablet (Pnv No.115/Iron Fumarate/Fa) 1 Each Tab.chew 1 Tab PO DAILY 30 Days Zofran (Ondansetron Hcl) 4 Mg Tablet 1 Tab PO PRN Q6-8HRS Bisacodyl 5 Mg Tablet.dr 5 Mg PO PRN DAILY PRN 3 Days Cetirizine Hcl 10 Mg Tablet 1 Tab PO DAILY Prochlorperazine Maleate 25 Mg Supp.rect 25 Mg RC Q8HRS PRN Reported Suboxone 8 Mg-2 Mg Sl Film (Buprenorphine Hcl/Naloxone Hcl) 1 Each Film 1 Strip SL BID MDD 1 Strip(s) 30 Days Macrobid 100 Mg Capsule (Nitrofurantoin Monohyd/M-Cryst) 100 Mg Capsule 1 Cap PO BID 7 Days Vitals/I & O Vital Sign - Last 24 Hours 04/22/20 04/22/20 04/22/20 04/22/20 14:23 15:00 15:23 19:00 Temp 99.4 98.7 99.4 98.7 Pulse 82 92 Resp 16 17 16 17 B/P (MAP) 98/54 (69) 112/66 (81) Pulse Ox 96 97 O2 Delivery Room Air Room Air Room Air Room Air 04/22/20 04/22/20 04/22/20 04/22/20 20:00 20:34 21:34 23:00 Temp 98.6 98.6 Pulse 80 Resp 20 18 18 B/P (MAP) 106/57 (73) Pulse Ox 97 96 96 O2 Delivery Room Air Room Air Room Air Room Air O2 Flow Rate 95.0 04/23/20 04/23/20 04/23/20 04/23/20 03:00 03:10 04:10 07:00 Temp 98.1 98.0 98.1 98.0 Pulse 80 80 Resp 18 16 16 16 B/P (MAP) 95/53 (67) 95/57 (70) Pulse Ox 91 96 100 O2 Delivery Room Air Room Air Room Air Room Air 04/23/20 04/23/20 08:30 11:00 Temp 98.2 98.2 Pulse 84 Resp 16 B/P (MAP) 97/58 (71) Pulse Ox 99 O2 Delivery Room Air Room Air Intake and Output 04/22/20 04/22/20 04/23/20 15:00 23:00 07:00 Intake Total 250 ml Balance 250 ml Justicifation of Admission Dx: Justifications for Admission: Justification of Admission Dx: ANJEL Leong MD Apr 23, 2020 11:59
[2020-04-23 15:00] VITALS: BP 98/57
[2020-04-23] MEDS: HYDROcodone/APAP 7.5/325MG 1 TAB TABLET PO PRN ×2 (15:09→19:56)
[2020-04-23 19:00] VITALS: BP 96/54
[2020-04-24] VITALS (7 sets, daily range): BP systolic 87–101; BP diastolic 47–64
[2020-04-24] MEDS: HYDROcodone/APAP 7.5/325MG 1 TAB TABLET PO PRN ×2 (00:13→18:51)
[2020-04-24] MEDS: cefTRIAXone IV Push 1 GM VIAL. IVP SCH (04:17)
[2020-04-24] MEDS: IV NORMAL SALINE 1000ML BAG 1,000 ML IV SCH ×2 (04:17→17:05)
--- NOTE | 2020-04-24 08:32 | PDOC ---
PULMONARY PROGRESS NOTES DATE: 04/24/20 TIME: 08:32 Subjective sob better cp better no cough Vitals Vital Signs Date Time Temp Pulse Resp B/P (MAP) Pulse Ox O2 Delivery O2 Flow Rate FiO2 04/24/20 07:00 98.1 80 17 95/59 (71) 97 Room Air 98.1 ROS: No Nausea General: Alert, Oriented X4, No acute distress HEENT: Other (nc at perrl ) Lungs: Clear Cardiovascular: S1, S2 Abdomen: Soft, Non-tender Neuro Exam: Alert Extremities: No Edema Skin: Warm Medications Active Scripts Medications Dose Route/Sig Max Daily Dose Days Date Category Suboxone 8 Mg-2 Mg Sl Film (Buprenorphine Hcl/Naloxone Hcl) 1 Each Film 1 Strip SL BID MDD 1 Strip(s) 30 04/22/20 Reported Macrobid 100 Mg Capsule (Nitrofurantoin Monohyd/M-Cryst) 100 Mg Capsule 1 Cap PO BID 7 04/22/20 Reported Compazine (Prochlorperazine Maleate) 10 Mg Tablet 1 Tab PO Q6HRS 04/17/20 Rx 19 Chewable Tablet (Pnv No.115/Iron Fumarate/Fa) 1 Each Tab.chew 1 Tab PO DAILY 30 03/24/20 Rx Zofran (Ondansetron Hcl) 4 Mg Tablet 1 Tab PO PRN Q6-8HRS 03/24/20 Rx Bisacodyl 5 Mg Tablet.dr 5 Mg PO PRN DAILY PRN 3 09/29/19 Rx Cetirizine Hcl 10 Mg Tablet 1 Tab PO DAILY 09/29/19 Rx Prochlorperazine Maleate 25 Mg Supp.rect 25 Mg RC Q8HRS PRN 09/14/19 Rx Impression . IMPRESSION: 1. Acute pulmonary embolism in a patient who is 10 weeks . Etiology of pulmonary embolism likely hypercoagulable state. Her mother had deep venous thrombosis at age 25 and her aunt of pulmonary embolism. She could have factor V Leiden mutation. 2. Abnormal CT chest with bibasilar infiltrates, more on the left base than on the right. No symptoms of pneumonia. Likely pulmonary infarction, but agree with current empiric antibiotic due to low-grade fever. 3. Suspected hypercoagulable state. Possible Factor V Leiden mutation. 4. A 10-week . 5. smoker Plan . RECOMMENDATIONS: 1. I have discussed with the patient. At this time, I would continue with Lovenox. She would require during her . no warfarin or eliquis during . 2. Venous Dopplers were negative. 3. hypercoagulable workup as an outpatient since it is not available in the hospital. 4. OB consulted regarding her . 5. she would require AC w lovenox during entire , as is hyper coag state, bridge to hep gtt when in labor 6. advised to quit smoking for ever 7. consider changing abx to po discussed w pt and her QUINCY JACINTO MD Apr 24, 2020 08:32
[2020-04-24] MEDS: PRENATAL VITAMIN PO SCH (08:46)
--- NOTE | 2020-04-24 09:13 | PDOC ---
VISUAL COORDINATOR PROGRESS NOTE Date of Service: DATE: 04/24/20 TIME: 09:12 Subjective: Pt states CP and SOA improved. Discussed long-term plans for . Recommended establishing with primary OB so after d/c. Objective: Vital Signs: Vital Signs Date Time Temp Pulse Resp B/P (MAP) Pulse Ox O2 Delivery O2 Flow Rate FiO2 04/23/20 07:00 98.0 80 16 95/57 (70) 100 Room Air 98.0 Vital Signs Date Time Temp Pulse Resp B/P (MAP) Pulse Ox O2 Delivery O2 Flow Rate FiO2 04/24/20 07:00 98.1 80 17 95/59 (71) 97 Room Air 98.1 Physical Exam: GENERAL: No apparent distress. Alert and oriented. HEENT: Head normocephalic, atraumatic. NECK: Supple LUNGS: Clear to auscultation. HEART: RRR, S1, S2 present, pulses intact ABDOMEN: Soft, positive bowel sounds. EXTREMITIES: No cyanosis or edema. NEUROLOGIC: Normal speech, normal tone PSYCHIATRIC: Normal affect, normal mood. SKIN: No ulceration. Assessment & Plan: A/P30y @ 9.3 by 8wk u/s with PE 1.) PE on Lovenox (1 mg/kg every 12 hours), will need to continue Subcutaneous LMWH for at least 3-6 months. Will need outpt referral to [facility]. 2.) CP - may benefit from IV pain meds. Less adverse effect on the fetus. 3.) Crohns disease currently no meds, no h/o surgery, has not established with local GI 4.) Suboxone use 5.) Fetus wkly NSTs 6.) Will continue to follow SARAH BETH LY MD Apr 24, 2020 09:13
--- NOTE | 2020-04-24 11:01 | PDOC ---
PROGRESS NOTES Date of Service: DATE: 04/24/20 TIME: 11:00 Chief Complaint Chief Complaint impression Pulmonary embolism Sariah 10 wks gestation Crohn's Disease Narcotic abuse hx 04/24 C/O INC NAUSEA TODAY History of Present Illness History of Present Illness 04/24/2020 Patient seen and examined Patient in NAD on room air Discussed DVT prophylaxis Discussed with RN Chart reviewed continue Subcutaneous LMWH for at least 3-6 months. Will need outpt referral to [facility]. Vitals Vitals Vital Signs Date Time Temp Pulse Resp B/P (MAP) Pulse Ox O2 Delivery O2 Flow Rate FiO2 04/24/20 08:20 Room Air 04/24/20 07:00 98.1 80 17 95/59 (71) 97 98.1 Physical Exam General: Alert, Oriented X3, Cooperative, No acute distress Heart: Regular rate, Normal S1, Normal S2, No murmurs Lungs: Clear Abdomen: Normal bowel sounds, Soft, No tenderness, No hepatosplenomegaly, No masses Extremities: No clubbing, No cyanosis, No edema, Normal pulses, No tenderness/swelling Skin: No rashes, No breakdown Assessment and Plan Assessmemt and Plan Problems Medical Problems: (1) Chest pain Status: Acute Comment Review of Relevant I have reviewed the following items kulwinder (where applicable) has been applied. Labs Microbiology 04/21/20 Urine Culture - Final, Complete Medications Current Medications Multi-Ingredient Mouthwash/Gargle (Gi Cocktail) 20 ml 1X ONCE SWSW Last administered on 04/21/20at 12:28; Start 04/21/20 at 12:00; Stop 04/21/20 at 12:01; Status DC Acetaminophen (Tylenol) 1,000 mg 1X ONCE PO Last administered on 04/21/20at 12:2 8; Start 04/21/20 at 12:00; Stop 04/21/20 at 12:01; Status DC Ondansetron HCl (Zofran Odt) 4 mg 1X ONCE PO Last administered on 04/21/20at 12:28; Start 04/21/20 at 12:45; Stop 04/21/20 at 12:46; Status DC Ondansetron HCl (Zofran Odt) 4 mg STK-MED ONCE .ROUTE ; Start 04/21/20 at 12:26; Stop 04/21/20 at 12:26; Status DC Iohexol (Omnipaque 350 Mg/ml) 90 ml 1X ONCE IV Last administered on 04/21/20at 14:54; Start 04/21/20 at 15:00; Stop 04/21/20 at 15:03; Status DC Info (CONTRAST GIVEN -- Rx MONITORING) 1 each PRN DAILY PRN MC SEE COMMENTS; Start 04/21/20 at 15:15; Stop 04/23/20 at 15:14; Status DC Enoxaparin Sodium (Lovenox 60mg Syringe) 60 mg 1X ONCE SQ Last administered on 04/21/20at 16:45; Start 04/21/20 at 16:15; Stop 04/21/20 at 16:16; Status DC Enoxaparin Sodium (Lovenox 60mg Syringe) 60 mg Q12HR SQ Last administered on 04/24/20at 08:46; Start 04/21/20 at 21:00 Multivit/ Folic Acid/Iron (Multivitamin ) 1 tab DAILY PO ; Start 04/22/20 at 09:00; Stop 04/22/20 at 11:13; Status DC Sodium Chloride (Normal Saline Flush) 3 ml QSHIFT PRN IV AFTER MEDS AND BLOOD DRAWS; Start 04/21/20 at 19:15 Sodium Chloride 1,000 ml @ 100 mls/hr Q10H IV Last administered on 04/24/20at 04:17; Start 04/21/20 at 19:05 Acetaminophen (Tylenol) 650 mg PRN Q4HRS PRN PO TEMP OVER 100.4F OR MILD PAIN Last administered on 04/22/20at 03:36; Start 04/21/20 at 19:15 Al Hydroxide/Mg Hydroxide (Mylanta Plus Xs) 30 ml PRN DAILY PRN PO HEARTBURN / GAS; Start 04/21/20 at 19:15 Sodium Monofluorophosphate (Fleet Adult) 133 ml PRN DAILY PRN RI CONSTIPATION; Start 04/21/20 at 19:15 Docusate Sodium (Colace) 100 mg PRN BID PRN PO HARD STOOLS; Start 04/21/20 at 19:15 Albuterol Sulfate (Ventolin Neb Soln) 2.5 mg PRN Q4HRS PRN NEB SHORTNESS OF BREATH; Start 04/21/20 at 19:15 Guaifenesin (Robitussin) 200 mg PRN Q4HRS PRN PO COUGH; Start 04/21/20 at 19:15 Ceftriaxone Sodium (Rocephin) 1 gm Q24H IVP Last administered on 04/24/20at 04: 17; Start 04/22/20 at 04:00 Acetaminophen/ Hydrocodone Bitart (Lortab 5/325) 1 tab PRN Q6HRS PRN PO MODERATE - SEVERE PAIN Last administered on 04/23/20at 03:10; Start 04/22/20 at 08:00; Stop 04/23/20 at 10:14; Status DC Non-Formulary Medication 1 ea DAILY PO Last administered on 04/24/20at 08:46; Start 04/22/20 at 12:00 Acetaminophen/ Hydrocodone Bitart (Lortab 7.5/325) 1 tab PRN Q4HRS PRN PO MODERATE TO SEVERE PAIN Last administered on 04/24/20at 00:13; Start 04/23/20 at 10:15 Active Scripts Active Compazine (Prochlorperazine Maleate) 10 Mg Tablet 1 Tab PO Q6HRS 19 Chewable Tablet (Pnv No.115/Iron Fumarate/Fa) 1 Each Tab.chew 1 Tab PO DAILY 30 Days Zofran (Ondansetron Hcl) 4 Mg Tablet 1 Tab PO PRN Q6-8HRS Bisacodyl 5 Mg Tablet.dr 5 Mg PO PRN DAILY PRN 3 Days Cetirizine Hcl 10 Mg Tablet 1 Tab PO DAILY Prochlorperazine Maleate 25 Mg Supp.rect 25 Mg RC Q8HRS PRN Reported Suboxone 8 Mg-2 Mg Sl Film (Buprenorphine Hcl/Naloxone Hcl) 1 Each Film 1 Strip SL BID MDD 1 Strip(s) 30 Days Macrobid 100 Mg Capsule (Nitrofurantoin Monohyd/M-Cryst) 100 Mg Capsule 1 Cap PO BID 7 Days Vitals/I & O Vital Sign - Last 24 Hours 04/23/20 04/23/20 04/23/20 04/23/20 15:00 15:09 16:10 19:00 Temp 99.0 98.2 99.0 98.2 Pulse 85 93 Resp 16 16 16 18 B/P (MAP) 98/57 (71) 96/54 (68) Pulse Ox 99 99 O2 Delivery Room Air Room Air Room Air Room Air 8/05/0504/23/20 04/23/20 04/24/20 19:56 20:30 21:59 00:13 Resp 20 16 18 Pulse Ox 99 99 99 O2 Delivery Room Air Room Air Room Air Room Air 04/24/20 04/24/20 04/24/20 04/24/20 00:17 01:11 04:26 07:00 Temp 98.3 98.1 98.1 98.3 98.1 98.1 Pulse 84 82 80 Resp 18 18 18 17 B/P (MAP) 87/47 (60) 95/54 (68) 95/59 (71) Pulse Ox 99 99 97 97 O2 Delivery Room Air Room Air Room Air Room Air 04/24/20 08:20 O2 Delivery Room Air Intake and Output 04/23/20 04/23/20 04/24/20 15:00 23:00 07:00 Intake Total 540 ml 400 ml Output Total 500 ml 100 ml Balance 40 ml 400 ml -100 ml Justicifation of Admission Dx: Justifications for Admission: Justification of Admission Dx: ANJEL Leong MD Apr 24, 2020 11:01
[2020-04-25] MEDS: IV NORMAL SALINE 1000ML BAG 1,000 ML IV SCH ×2 (02:09→13:05)
[2020-04-25 03:02] VITALS: BP 94/59
[2020-04-25] MEDS ORDERED: cefTRIAXone IV Push 1 GM VIAL. IVP SCH ×2 (06:30→09:00)
[2020-04-25 07:00] VITALS: BP 105/63
[2020-04-25] MEDS: PRENATAL VITAMIN PO SCH (09:33)
--- NOTE | 2020-04-25 10:02 | PDOC ---
PROGRESS NOTES Date of Service: DATE: 04/25/20 TIME: 10:02 Chief Complaint Chief Complaint impression Pulmonary embolism Sariah 10 wks gestation Crohn's Disease Narcotic abuse hx 04/25 C/O INC NAUSEA TODAY History of Present Illness History of Present Illness 04/25 Patient seen and examined Patient in NAD on room air Discussed DVT prophylaxis Discussed with RN Chart reviewed continue Subcutaneous LMWH for at least 3-6 months. Will need outpt referral to [facility]. Vitals Vitals Vital Signs Date Time Temp Pulse Resp B/P (MAP) Pulse Ox O2 Delivery O2 Flow Rate FiO2 04/25/20 08:15 97 Room Air 04/25/20 07:00 98.4 82 17 105/63 (77) 98.4 Physical Exam General: Alert, Oriented X3, Cooperative, No acute distress Heart: Regular rate, Normal S1, Normal S2, No murmurs Lungs: Clear Abdomen: Normal bowel sounds, Soft, No tenderness, No hepatosplenomegaly, No masses Extremities: No clubbing, No cyanosis, No edema, Normal pulses, No tenderness/swelling Skin: No rashes, No breakdown Assessment and Plan Assessmemt and Plan Problems Medical Problems: (1) Chest pain Status: Acute Comment Review of Relevant I have reviewed the following items kulwinder (where applicable) has been applied. Labs Microbiology 04/21/20 Urine Culture - Final, Complete Medications Current Medications Multi-Ingredient Mouthwash/Gargle (Gi Cocktail) 20 ml 1X ONCE SWSW Last administered on 04/21/20at 12:28; Start 04/21/20 at 12:00; Stop 04/21/20 at 12:01; Status DC Acetaminophen (Tylenol) 1,000 mg 1X ONCE PO Last administered on 04/21/20at 12:28; Start 04/21/20 at 12:00; Stop 04/21/20 at 12:01; Status DC Ondansetron HCl (Zofran Odt) 4 mg 1X ONCE PO Last administered on 04/21/20at 12:28; Start 04/21/20 at 12:45; Stop 04/21/20 at 12:46; Status DC Ondansetron HCl (Zofran Odt) 4 mg STK-MED ONCE .ROUTE ; Start 04/21/20 at 12:26; Stop 04/21/20 at 12:26; Status DC Iohexol (Omnipaque 350 Mg/ml) 90 ml 1X ONCE IV Last administered on 04/21/20at 14:54; Start 04/21/20 at 15:00; Stop 04/21/20 at 15:03; Status DC Info (CONTRAST GIVEN -- Rx MONITORING) 1 each PRN DAILY PRN MC SEE COMMENTS; Start 04/21/20 at 15:15; Stop 04/23/20 at 15:14; Status DC Enoxaparin Sodium (Lovenox 60mg Syringe) 60 mg 1X ONCE SQ Last administered on 04/21/20at 16:45; Start 04/21/20 at 16:15; Stop 04/21/20 at 16:16; Status DC Enoxaparin Sodium (Lovenox 60mg Syringe) 60 mg Q12HR SQ Last administered on 04/25/20at 09:34; Start 04/21/20 at 21:00 Multivit/ Folic Acid/Iron (Multivitamin ) 1 tab DAILY PO ; Start 04/22/20 at 09:00; Stop 04/22/20 at 11:13; Status DC Sodium Chloride (Normal Saline Flush) 3 ml QSHIFT PRN IV AFTER MEDS AND BLOOD DRAWS; Start 04/21/20 at 19:15 Sodium Chloride 1,000 ml @ 100 mls/hr Q10H IV Last administered on 04/25/20at 02:09; Start 04/21/20 at 19:05 Acetaminophen (Tylenol) 650 mg PRN Q4HRS PRN PO TEMP OVER 100.4F OR MILD PAIN Last administered on 04/22/20at 03:36; Start 04/21/20 at 19:15 Al Hydroxide/Mg Hydroxide (Mylanta Plus Xs) 30 ml PRN DAILY PRN PO HEARTBURN / GAS; Start 04/21/20 at 19:15 Sodium Monofluorophosphate (Fleet Adult) 133 ml PRN DAILY PRN [place] CONSTIPATION; Start 04/21/20 at 19:15 Docusate Sodium (Colace) 100 mg PRN BID PRN PO HARD STOOLS; Start 04/21/20 at 19:15 Albuterol Sulfate (Ventolin Neb Soln) 2.5 mg PRN Q4HRS PRN NEB SHORTNESS OF BREATH; Start 04/21/20 at 19:15 Guaifenesin (Robitussin) 200 mg PRN Q4HRS PRN PO COUGH; Start 04/21/20 at 19:15 Ceftriaxone Sodium (Rocephin) 1 gm Q24H IVP Last administered on 04/24/20at 04:17; Start 04/22/20 at 04:00; Stop 04/25/20 at 06:08; Status DC Acetaminophen/ Hydrocodone Bitart (Lortab 5/325) 1 tab PRN Q6HRS PRN PO MODERATE - SEVERE PAIN Last administered on 04/23/20at 03:10; Start 04/22/20 at 08:00; Stop 04/23/20 at 10:14; Status DC Non-Formulary Medication 1 ea DAILY PO Last administered on 04/25/20at 09:33; Start 04/22/20 at 12:00 Acetaminophen/ Hydrocodone Bitart (Lortab 7.5/325) 1 tab PRN Q4HRS PRN PO MODERATE TO SEVERE PAIN Last administered on 04/24/20at 18:51; Start 04/23/20 at 10:15 Ceftriaxone Sodium (Rocephin) 1 gm Q24H IVP ; Start 04/25/20 at 06:30; Stop 04/25/20 at 06:17; Status DC Ceftriaxone Sodium (Rocephin) 1 gm Q24H IVP Last administered on 04/25/20at 09:34; Start 04/25/20 at 09:00 Active Scripts Active Compazine (Prochlorperazine Maleate) 10 Mg Tablet 1 Tab PO Q6HRS 19 Chewable Tablet (Pnv No.115/Iron Fumarate/Fa) 1 Each Tab.chew 1 Tab PO DAILY 30 Days Zofran (Ondansetron Hcl) 4 Mg Tablet 1 Tab PO PRN Q6-8HRS Bisacodyl 5 Mg Tablet.dr 5 Mg PO PRN DAILY PRN 3 Days Cetirizine Hcl 10 Mg Tablet 1 Tab PO DAILY Prochlorperazine Maleate 25 Mg Supp.rect 25 Mg RC Q8HRS PRN Reported Suboxone 8 Mg-2 Mg Sl Film (Buprenorphine Hcl/Naloxone Hcl) 1 Each Film 1 Strip SL BID MDD 1 Strip(s) 30 Days Macrobid 100 Mg Capsule (Nitrofurantoin Monohyd/M-Cryst) 100 Mg Capsule 1 Cap PO BID 7 Days Vitals/I & O Vital Sign - Last 24 Hours 04/24/20 04/24/20 04/24/20 04/24/20 11:00 15:00 18:51 19:00 Temp 98.0 97.9 98.3 98.0 97.9 98.3 Pulse 80 93 87 Resp 18 18 16 16 B/P (MAP) 101/64 (76) 94/57 (69) 101/51 (68) Pulse Ox 98 98 98 O2 Delivery Room Air Room Air Room Air Room Air 04/24/20 04/24/20 04/24/20 04/25/20 19:56 20:17 23:02 03:02 Temp 98.0 98.2 98.0 98.2 Pulse 73 75 Resp 18 16 16 B/P (MAP) 97/56 (70) 94/59 (71) Pulse Ox 98 97 99 O2 Delivery Room Air Room Air Room Air Room Air 04/25/20 04/25/20 07:00 08:15 Temp 98.4 98.4 Pulse 82 Resp 17 B/P (MAP) 105/63 (77) Pulse Ox 97 97 O2 Delivery Room Air Room Air Intake and Output 04/24/20 04/24/20 04/25/20 15:00 23:00 07:00 Intake Total 600 ml 30 ml Output Total 600 ml Balance 600 ml 30 ml -600 ml Justicifation of Admission Dx: Justifications for Admission: Justification of Admission Dx: ANJEL Leong MD Apr 25, 2020 10:02
[2020-04-25 11:00] VITALS: BP 97/61
--- NOTE | 2020-04-25 12:21 | PDOC ---
PULMONARY PROGRESS NOTES DATE: 04/25/20 TIME: 12:20 Subjective sob better cp better no cough Vitals Vital Signs Date Time Temp Pulse Resp B/P (MAP) Pulse Ox O2 Delivery O2 Flow Rate FiO2 04/25/20 11:00 98.2 77 17 97/61 (73) 98 Room Air 98.2 ROS: No Nausea General: Alert, Oriented X4, No acute distress HEENT: Other (nc at perrl ) Lungs: Clear Cardiovascular: S1, S2 Abdomen: Soft, Non-tender Neuro Exam: Alert Extremities: No Edema Skin: Warm Medications Active Scripts Medications Dose Route/Sig Max Daily Dose Days Date Category Suboxone 8 Mg-2 Mg Sl Film (Buprenorphine Hcl/Naloxone Hcl) 1 Each Film 1 Strip SL BID MDD 1 Strip(s) 30 04/22/20 Reported Macrobid 100 Mg Capsule (Nitrofurantoin Monohyd/M-Cryst) 100 Mg Capsule 1 Cap PO BID 7 04/22/20 Reported Compazine (Prochlorperazine Maleate) 10 Mg Tablet 1 Tab PO Q6HRS 04/17/20 Rx 19 Chewable Tablet (Pnv No.115/Iron Fumarate/Fa) 1 Each Tab.chew 1 Tab PO DAILY 30 03/24/20 Rx Zofran (Ondansetron Hcl) 4 Mg Tablet 1 Tab PO PRN Q6-8HRS 03/24/20 Rx Bisacodyl 5 Mg Tablet.dr 5 Mg PO PRN DAILY PRN 3 09/29/19 Rx Cetirizine Hcl 10 Mg Tablet 1 Tab PO DAILY 09/29/19 Rx Prochlorperazine Maleate 25 Mg Supp.rect 25 Mg RC Q8HRS PRN 09/14/19 Rx Impression . IMPRESSION: 1. Acute pulmonary embolism in a patient who is 10 weeks . Etiology of pulmonary embolism likely hypercoagulable state. Her mother had deep venous thrombosis at age 25 and her aunt of pulmonary embolism. She could have factor V Leiden mutation. 2. Abnormal CT chest with bibasilar infiltrates, more on the left base than on the right. No symptoms of pneumonia. Likely pulmonary infarction, but agree with current empiric antibiotic due to low-grade fever. 3. Suspected hypercoagulable state. Possible Factor V Leiden mutation. 4. A 10-week . 5. smoker Plan . RECOMMENDATIONS: 1. I have discussed with the patient. At this time, I would continue with Lovenox. She would require during her . no warfarin or eliquis during . 2. Venous Dopplers were negative. 3. hypercoagulable workup as an outpatient since it is not available in the hospital. 4. OB consulted regarding her . 5. she would require AC w lovenox during entire , as is hyper coag state, bridge to hep gtt when in labor 6. advised to quit smoking for ever 7. consider changing abx to po discussed w pt and her awaiting arrangement of OP lovenox before dc d/w MELVIN STONER MD Apr 25, 2020 12:21
--- NOTE | 2020-04-25 12:58 | NUR ---
SW following. Discussed with RN, pt needing Lovenox at discharge, however does not have insurance (medicaid pending currently). SW met with pt and pt's spouse at bedside (no isolation precautions at the time), discussed [employer], pt reported she knows about this, provided print out of locations with the cheapest doe ($60 for 10 syringes), pt reported this is fine, she thought it was going to be $60 a day. Pt wants to discharge because of cost of being in the hospital. Pt completed medicaid application with [employer], thinks her medicaid will come through in 2-4 weeks due to being . SW will continue to follow. RN notified.
--- NOTE | 2020-04-25 13:17 | PDOC ---
MEDICAL OFFICE CLERK PROGRESS NOTE Date of Service: DATE: 04/25/20 TIME: 13:16 Subjective: The pt feels this morning. She feels that she is developing a yeast infection. She wonders if we could prescribe Diflucan. Informed that vaginal tx are a better option in b/c less risk. Pt has an upcoming outpt u/s, wonders if we could perform here. Informed pt that may not be necessary since recently had an u/s Objective: Vital Signs: Vital Signs Date Time Temp Pulse Resp B/P (MAP) Pulse Ox O2 Delivery O2 Flow Rate FiO2 04/24/20 07:00 98.1 80 17 95/59 (71) 97 Room Air 98.1 Vital Signs Date Time Temp Pulse Resp B/P (MAP) Pulse Ox O2 Delivery O2 Flow Rate FiO2 04/25/20 11:00 98.2 77 17 97/61 (73) 98 Room Air 98.2 Physical Exam: GENERAL: No apparent distress. Alert and oriented. HEENT: Head normocephalic, atraumatic. NECK: Supple LUNGS: Clear to auscultation. HEART: RRR, S1, S2 present, pulses intact ABDOMEN: Soft, positive bowel sounds. EXTREMITIES: No cyanosis or edema. NEUROLOGIC: Normal speech, normal tone PSYCHIATRIC: Normal affect, normal mood. SKIN: No ulceration. Assessment & Plan: A/P 30y @ 9.5 by 8wk u/s with PE 1.) PE on Lovenox (1 mg/kg every 12 hours), will need to continue Subcutaneous LMWH for at least 3-6 months. Will need outpt referral to [facility]. 2.) CP - improved 3.) Vulvovaginal candidiasis on Clotrimazole vaginal cream for 7 days 4.) Crohns disease currently no meds, no h/o surgery, has not established with local GI 5.) Suboxone use 6.) Fetus wkly NSTs 7.) Will continue to follow SARAH BETH LY MD Apr 25, 2020 13:17
--- NOTE | 2020-04-25 13:52 | PDOC3 ---
Discharge Summary Date of Admission: Apr 21, 2020 Date of Discharge: Apr 25, 2020 Follow-Up: 3-5 days Admitting Diagnosis comment: discharge dx Pulmonary embolism, acute Sariah 10 wks gestation , high risk Crohn's Disease Narcotic abuse hx hypercoagulable state 04/25 C/O less NAUSEA TODAY, has burgess for lovenox rx with good rx coupon History of Present Illness History of Present Illness 04/25 Patient seen and examined Patient in NAD on room air Discussed DVT prophylaxis Discussed with RN Chart reviewed continue Subcutaneous LMWH for at least 9 months. Will need outpt referral to [facility] needs hypercoag work-up soon as outpatient, NEEDS ob appt ki d/c planning 36 min Vitals Vitals Vital Signs Date Time Temp Pulse Resp B/P (MAP) Pulse Ox O2 Delivery O2 Flow Rate FiO2 04/25/20 08:15 97 Room Air 04/25/20 07:00 98.4 82 17 105/63 (77) 98.4 Physical Exam General: Alert, Oriented X3, Cooperative, No acute distress Heart: Regular rate, Normal S1, Normal S2, No murmurs Lungs: Clear Abdomen: Normal bowel sounds, Soft, No tenderness, No hepatosplenomegaly, No masses Extremities: No clubbing, No cyanosis, No edema, Normal pulses, No tenderness/swelling Skin: No rashes, No breakdown FINAL DIAGNOSIS Problems Medical Problems: (1) Chest pain Status: Acute Brief Hospital Course Ms. Arceo is a 30 old [sex] who presented with [ 10 wk , acute PULMONARY EMBOLUS ] CONDITION AT DISCHARGE: Improved Discharge Medications Current Medications Multi-Ingredient Mouthwash/Gargle (Gi Cocktail) 20 ml 1X ONCE SWSW Last administered on 04/21/20at 12:28; Start 04/21/20 at 12:00; Stop 04/21/20 at 12:01; Status DC Acetaminophen (Tylenol) 1,000 mg 1X ONCE PO Last administered on 04/21/20at 12:28; Start 04/21/20 at 12:00; Stop 04/21/20 at 12:01; Status DC Ondansetron HCl (Zofran Odt) 4 mg 1X ONCE PO Last administered on 04/21/20at 12:28; Start 04/21/20 at 12:45; Stop 04/21/20 at 12:46; Status DC Ondansetron HCl (Zofran Odt) 4 mg STK-MED ONCE .ROUTE ; Start 04/21/20 at 12:26; Stop 04/21/20 at 12:26; Status DC Iohexol (Omnipaque 350 Mg/ml) 90 ml 1X ONCE IV Last administered on 04/21/20at 14:54; Start 04/21/20 at 15:00; Stop 04/21/20 at 15:03; Status DC Info (CONTRAST GIVEN -- Rx MONITORING) 1 each PRN DAILY PRN MC SEE COMMENTS; Start 04/21/20 at 15:15; Stop 04/23/20 at 15:14; Status DC Enoxaparin Sodium (Lovenox 60mg Syringe) 60 mg 1X ONCE SQ Last administered on 04/21/20at 16:45; Start 04/21/20 at 16:15; Stop 04/21/20 at 16:16; Status DC Enoxaparin Sodium (Lovenox 60mg Syringe) 60 mg Q12HR SQ Last administered on 04/25/20at 09:34; Start 04/21/20 at 21:00 Multivit/ Folic Acid/Iron (Multivitamin ) 1 tab DAILY PO ; Start 04/22/20 at 09:00; Stop 04/22/20 at 11:13; Status DC Sodium Chloride (Normal Saline Flush) 3 ml QSHIFT PRN IV AFTER MEDS AND BLOOD DRAWS; Start 04/21/20 at 19:15 Sodium Chloride 1,000 ml @ 100 mls/hr Q10H IV Last administered on 04/25/20at 02:09; Start 04/21/20 at 19:05 Acetaminophen (Tylenol) 650 mg PRN Q4HRS PRN PO TEMP OVER 100.4F OR MILD PAIN Last administered on 04/22/20at 03:36; Start 04/21/20 at 19:15 Al Hydroxide/Mg Hydroxide (Mylanta Plus Xs) 30 ml PRN DAILY PRN PO HEARTBURN / GAS; Start 04/21/20 at 19:15 Sodium Monofluorophosphate (Fleet Adult) 133 ml PRN DAILY PRN [place] CONSTIPATION; Start 04/21/20 at 19:15 Docusate Sodium (Colace) 100 mg PRN BID PRN PO HARD STOOLS; Start 04/21/20 at 19:15 Albuterol Sulfate (Ventolin Neb Soln) 2.5 mg PRN Q4HRS PRN NEB SHORTNESS OF BREATH; Start 04/21/20 at 19:15 Guaifenesin (Robitussin) 200 mg PRN Q4HRS PRN PO COUGH; Start 04/21/20 at 19:15 Ceftriaxone Sodium (Rocephin) 1 gm Q24H IVP Last administered on 04/24/20at 04:17; Start 04/22/20 at 04:00; Stop 04/25/20 at 06:08; Status DC Acetaminophen/ Hydrocodone Bitart (Lortab 5/325) 1 tab PRN Q6HRS PRN PO MODERATE - SEVERE PAIN Last administered on 04/23/20at 03:10; Start 04/22/20 at 08:00; Stop 04/23/20 at 10:14; Status DC Non-Formulary Medication 1 ea DAILY PO Last administered on 04/25/20at 09:33; Start 04/22/20 at 12:00 Acetaminophen/ Hydrocodone Bitart (Lortab 7.5/325) 1 tab PRN Q4HRS PRN PO MODERATE TO SEVERE PAIN Last administered on 04/24/20at 18:51; Start 04/23/20 at 10:15 Ceftriaxone Sodium (Rocephin) 1 gm Q24H IVP ; Start 04/25/20 at 06:30; Stop 04/25/20 at 06:17; Status DC Ceftriaxone Sodium (Rocephin) 1 gm Q24H IVP Last administered on 04/25/20at 09:34; Start 04/25/20 at 09:00 Clotrimazole (Mycelex-7) 1 sariah HS VG ; Start 04/25/20 at 21:00; Stop 05/02/20 at 20:59 Active Scripts Active Compazine (Prochlorperazine Maleate) 10 Mg Tablet 1 Tab PO Q6HRS 19 Chewable Tablet (Pnv No.115/Iron Fumarate/Fa) 1 Each Tab.chew 1 Tab PO DAILY 30 Days Zofran (Ondansetron Hcl) 4 Mg Tablet 1 Tab PO PRN Q6-8HRS Bisacodyl 5 Mg Tablet.dr 5 Mg PO PRN DAILY PRN 3 Days Cetirizine Hcl 10 Mg Tablet 1 Tab PO DAILY Prochlorperazine Maleate 25 Mg Supp.rect 25 Mg RC Q8HRS PRN Reported Suboxone 8 Mg-2 Mg Sl Film (Buprenorphine Hcl/Naloxone Hcl) 1 Each Film 1 Strip SL BID MDD 1 Strip(s) 30 Days Macrobid 100 Mg Capsule (Nitrofurantoin Monohyd/M-Cryst) 100 Mg Capsule 1 Cap PO BID 7 Days Vital Signs Vital Signs Date Time Temp Pulse Resp B/P (MAP) Pulse Ox O2 Delivery O2 Flow Rate FiO2 04/25/20 11:00 98.2 77 17 97/61 (73) 98 Room Air 98.2 Allergies Allergies Coded Allergies Type Severity Reaction Last Updated Verified Penicillins Allergy Mild N/V/D 04/22/20 Yes Disposition/Orders: D/C to Home Justicifation of Admission Dx: Justifications for Admission: Justification of Admission Dx: No ANJEL PIERRE MD Apr 25, 2020 13:52
[2020-04-25] MEDS ORDERED: ACET325T9 PO (13:57)
[2020-04-25] MEDS ORDERED: ENOX80DI SQ (13:57)
[2020-04-25] MEDS ORDERED: ALBU2.5V8 NEB (13:57)
[2020-04-25] MEDS ORDERED: DOCU-153 PO (13:57)
--- NOTE | 2020-04-25 13:58 | DISCH ---
DISCHARGE INSTRUCTIONS Condition on Discharge Condition on Discharge: Stable Activity After Discharge Activity Instructions for Disc: Resume previous activity Driving Instructions after Dis: Do not drive today Diet after Discharge Diet after Discharge: Regular Checks after Discharge Checks after discharge: Check blood press - daily Contacting the DRMarko after DC Call your doctor for: If your condition worsens Follow-Up Follow up with: obgyn this WEEK Follow Up With: DR STONER 2 WEEKS Treatment/Equipment after DC Adaptive Equipment Issued: None ANJEL PIERRE MD Apr 25, 2020 13:58
[2020-04-25 15:00] VITALS: BP 99/57
--- NOTE | 2020-04-25 15:47 | NUR ---
Discharge Note: ASHKAN MACEDO Discharge instructions and discharge home medications reviewed with Patient and significant other and a copy given. All questions have been answered and understanding verbalized. The following instructions and handouts were given: Discharge instructions, new prescriptions, education and follow up recommendations. Discontinued lines and drains: Peripheral IV discontinued intact. Patient discharged to Home or Self Care with Significant Other via Wheelchair off unit by EXCELSIOR CUTTER.
[2020-04-25] MEDS ORDERED: CLOTRIMAZOLE 1% VAGINAL CREAM 45GM TUBE. VG SCH (21:00)
== END 2020-04-25 15:49 | disposition home or self-care (01) | DRG 832 ==
LOC: ER 10:46 → 5 NORTH 16:00
PROVIDERS: ADMIT Family Medicine; ATTEND Family Medicine
DX: O88.211 Thromboembolism in pregnancy, first trimester (principal); D68.59 Other primary thrombophilia; K50.90 Crohn's disease, unspecified, without complications; O99.321 Drug use complicating pregnancy, first trimester; O98.811 Other maternal infectious and parasitic diseases complicating pregnancy, first trimester; O24.111 Pre-existing type 2 diabetes mellitus, in pregnancy, first trimester; O99.611 Diseases of the digestive system complicating pregnancy, first trimester; F11.10 Opioid abuse, uncomplicated; F17.210 Nicotine dependence, cigarettes, uncomplicated; Z3A.10 10 weeks gestation of pregnancy; Z82.49 Family history of ischemic heart disease and other diseases of the circulatory system; Z82.5 Family history of asthma and other chronic lower respiratory diseases; B37.3 Candidiasis of vulva and vagina; O99.331 Smoking (tobacco) complicating pregnancy, first trimester; Z71.6 Tobacco abuse counseling; E11.9 Type 2 diabetes mellitus without complications; Z79.4 Long term (current) use of insulin
CPT/HCPCS: 36415; 71045; 71275; 80053; 81001; 81025; 84484; 85025; 85379; 87086; 93005; 93971; 94760; 96372; 99285; J0696; J1650; J7030; Q9967; G0378

== ENCOUNTER 2020-05-02 14:11 | Emergency (ER) | payer MEDICAID ==
[~2020-05-02] VITALS: Ht 167.6 cm; Wt 63.6 kg
[~2020-05-02 14:11] MED LIST changes: +ACET325T9 PO; +ALBU2.5V8 NEB; +BUPR1FIL5 SL; +DOCU-153 PO; +ENOX80DI SQ
[2020-05-02 15:07] VITALS: BP 123/74
--- NOTE | 2020-05-02 15:49 | RAD ---
EXAM: Bilateral lower extremity venous Doppler sonogram. HISTORY: Pain and swelling. Pulmonary embolism. TECHNIQUE: Shah scale and color Doppler sonographic evaluation of the bilateral lower extremity veins with spectral waveform analysis was performed. FINDINGS: There is normal color flow, normal compressibility and there are normal spectral waveforms in the common femoral, superficial femoral, popliteal, posterior tibial and greater saphenous veins. IMPRESSION: No Doppler evidence of lower extremity deep venous thrombosis. Electronically signed by: Ameena Oliveros MD (05/02/2020 3:46 PM) [id number]
--- NOTE | 2020-05-02 16:39 | PHYS DOC ---
Past Medical History Past Medical History: Other Additional Past Medical Histor: DENTAL ABSCESS, CROHNS,NARCOTIC ABUSE/TAKES SUBOXONE Past Surgical History: No Surgical History Smoking Status: Current Every Day Smoker Alcohol Use: None Drug Use: None General Adult EDM: Chief Complaint: LOWER EXT PAIN HPI: HPI: Patient is a 30 year old female 2 para 1 currently 12 weeks who presents to the ED today complaining of 6 out of 10 left lower extremity pain specifically behind her thigh as well as slight right lower extremity pain, symptoms have been going on since April 17, 2020 when she was admitted for PE. She was put on Lovenox which she is still using. She follows up with an ACTIVE DIRECTORY ADMINISTRATOR. Patient denies anything specifically exacerbating or relieving her pain. Review of Systems: Review of Systems: Constitutional: Denies fever or chills. [] Eyes: Denies change in visual acuity. [] HENT: Denies nasal congestion or sore throat. [] Respiratory: Denies cough or shortness of breath. [] Cardiovascular: Denies chest pain or edema. [] GI: Reports . Denies abdominal pain, nausea, vomiting, bloody stools or diarrhea. [] : Denies dysuria. [] Musculoskeletal: Reports left lower extremity pain, right lower extremity pain. Denies back pain or joint pain. [] Integument: Denies rash. [] Neurologic: Denies headache, focal weakness or sensory changes. [] Psychiatric: Denies depression or anxiety. [] Heart Score: Risk Factors: Risk Factors: DM, Current or recent (<one month) smoker, HTN, HLP, family history of CAD, obesity. Risk Scores: Score 0 - 3: 2.5% MACE over next 6 weeks - Discharge Home Score 4 - 6: 20.3% MACE over next 6 weeks - Admit for Clinical Observation Score 7 - 10: 72.7% MACE over next 6 weeks - Early Invasive Strategies Allergies: Allergies: Allergies Coded Allergies Type Severity Reaction Last Updated Verified Penicillins Allergy Mild N/V/D 04/22/20 Yes Physical Exam: PE: Constitutional: Well developed, well nourished, no acute distress, non-toxic appearance. [] HENT: Normocephalic, atraumatic, bilateral external ears normal, oropharynx moist, no oral exudates, nose normal. [] Eyes: PERRLA, EOMI, conjunctiva normal, no discharge. [] Neck: Normal range of motion, no tenderness, supple, no stridor. [] Cardiovascular:Heart rate regular rhythm, no murmur [] Lungs & Thorax: Bilateral breath sounds clear to auscultation [] Abdomen: Bowel sounds normal, soft, no tenderness, no masses, no pulsatile masses. [] Skin: Warm, dry, no erythema, no rash. [] Back: No tenderness, no CVA tenderness. [] Extremities: No tenderness, no cyanosis, no clubbing, ROM intact, no edema. Negative Homans sign bilaterally Neurologic: Alert and oriented X 3, normal motor function, normal sensory function, no focal deficits noted. [] Psychologic: Affect normal, judgement normal, mood normal. [] Current Patient Data: Vital Signs: Vital Signs Date Time Temp Pulse Resp B/P (MAP) Pulse Ox O2 Delivery O2 Flow Rate FiO2 05/02/20 15:07 98.3 76 18 123/74 (90) 98 Room Air 98.3 EKG: EKG: [] Radiology/Procedures: Radiology/Procedures: []PROCEDURE: VENOUS LOWER EXT BILATERAL EXAM: Bilateral lower extremity venous Doppler sonogram. HISTORY: Pain and swelling. Pulmonary embolism. TECHNIQUE: Shah scale and color Doppler sonographic evaluation of the bilateral lower extremity veins with spectral waveform analysis was performed. FINDINGS: There is normal color flow, normal compressibility and there are normal spectral waveforms in the common femoral, superficial femoral, popliteal, posterior tibial and greater saphenous veins. IMPRESSION: No Doppler evidence of lower extremity deep venous thrombosis. Electronically signed by: Ameena Norris MD (05/02/2020 3:46 PM) [id number] DICTATED and SIGNED BY: AMEENA NORRIS MD DATE: 05/02/20 1546 Course & Med Decision Making: Course & Med Decision Making Pertinent Labs and Imaging studies reviewed. (See chart for details) This is a 30-year-old female patient 2 para 1 currently 12 weeks presenting to the ED today with bilateral lower extremity pain worse on left side since April 21, 2020 when she was hospitalized for PE and put on Lovenox. Venous Doppler of bilateral lower extremities are negative for any acute findings. Patient has an ACTIVE DIRECTORY ADMINISTRATOR she follows up with. Encouraged to continue following up. Encouraged to continue using Lovenox. Sushant Disclaimer: Sushant Disclaimer: This electronic medical record was generated, in whole or in part, using a voice recognition dictation system. Departure Departure Impression: Primary Impression: Lower extremity pain, bilateral Disposition: HOME, SELF-CARE Condition: STABLE Referrals: NO PCP (PCP) SARAH BETH LY MD follow up as soon as possible Patient Instructions: Musculoskeletal Pain Additional Instructions: Your ultrasound of bilateral lower extremities were negative for any acute findings. Please continue using Lovenox at home as prescribed. Please follow- up with your ACTIVE DIRECTORY ADMINISTRATOR as soon as possible. You can take Tylenol as needed for pain. Justicifation of Admission Dx: Justifications for Admission: Justification of Admission Dx: N/A SPRING ORTIZ APRN May 02, 2020 16:39
== END 2020-05-02 16:45 | disposition home or self-care (01) ==
LOC: ER 14:11
DX: O26.891 Other specified pregnancy related conditions, first trimester (principal); M79.605 Pain in left leg; M79.604 Pain in right leg; F17.200 Nicotine dependence, unspecified, uncomplicated; Z88.0 Allergy status to penicillin; Z3A.12 12 weeks gestation of pregnancy
CPT/HCPCS: 93970; 99284

== ENCOUNTER 2020-05-26 13:06 | Emergency (ER) | payer MEDICAID ==
[~2020-05-26] VITALS: Ht 167.6 cm; Wt 69.3 kg
--- NOTE | 2020-05-26 14:40 | RAD ---
Examination: Limited right breast ultrasound. INDICATION: 30-year-old woman presenting with a tender knot at the 6:00 right breast in the areola. COMPARISON: CT angiogram chest of 04/21/2020 TECHNIQUE: Grayscale ultrasound imaging of the area of patient's reported palpable tenderness was performed in the general region of the retroareolar right 6:00 breast. FINDINGS: No fluid collection is identified. No architectural distortion or suspicious sonographic mass is apparent. The breast shows ultrasound features suggesting a dense fibroglandular pattern of breast tissue. There is localized skin thickening in the area of patient's reported palpable concern, best illustrated image 2 of 8. IMPRESSION: Possible skin lesion at the area of palpable concern. No evidence of a breast malignancy currently. BI-RADS 2 Benign findings Patient entered into a reminder system with targeted due date for next mammogram. Electronically signed by: Damian Elizondo MD (05/26/2020 2:37 PM) [id number]
[2020-05-26] MEDS ORDERED: CEPH500C PO (15:05)
--- NOTE | 2020-05-26 15:05 | PHYS DOC ---
Past Medical History Past Medical History: DVT, Other Additional Past Medical Histor: DENTAL ABSCESS, CROHNS,NARCOTIC ABUSE/TAKES SUBOXONE,PE (LINDA CURRY APRN) Past Surgical History: No Surgical History (LINDA CURRY APRN) Smoking Status: Current Every Day Smoker Additional Information: 09/17 ppd Alcohol Use: None Drug Use: None (LINDA CURRY APRN) General Adult EDM: Chief Complaint: BREAST PROBLEM HPI: HPI: Patient is a 30 year old AA female who presents to the emergency department with complaints of a tender bump below her right nipple at 6:00 that she noticed yesterday. Patient denies any irregular discharge from her breast. She denies any fever, redness, warmth, or drainage from the area. She states she is currently 15 weeks , she denies any abdominal pain, vaginal bleeding, irregular vaginal discharge. She currently rates the pain in her right breast a 7 out of 10 on the pain scale, she denies any alleviating factors the pain is worse with the area is touched. (LINDA CURRY APRN) Review of Systems: Review of Systems: Constitutional: Denies fever or chills. [] HENT: Denies nasal congestion or sore throat. [] Respiratory: Denies cough or shortness of breath. [] Cardiovascular: Denies chest pain GI: Denies abdominal pain, nausea, vomiting, or diarrhea. [] : Denies dysuria, hematuria, or vaginal bleeding. [] Musculoskeletal: Denies back pain or joint pain. [] Integument: See HPI Neurologic: Denies headache Psychiatric: Denies depression or anxiety. [] (LINDA CURRY APRN) Heart Score: Risk Factors: Risk Factors: DM, Current or recent (<one month) smoker, HTN, HLP, family history of CAD, obesity. Risk Scores: Score 0 - 3: 2.5% MACE over next 6 weeks - Discharge Home Score 4 - 6: 20.3% MACE over next 6 weeks - Admit for Clinical Observation Score 7 - 10: 72.7% MACE over next 6 weeks - Early Invasive Strategies (LINDA CURRY APRN) Allergies: Allergies: Allergies Coded Allergies Type Severity Reaction Last Updated Verified Penicillins Allergy Intermediate N/V/D, HIVES 05/26/20 Yes (LINDA CURRY PHOTOSTATIC COPY MAKER) Physical Exam: PE: Constitutional: Well developed, well nourished, no acute distress, non-toxic appearance. [] HENT: Normocephalic, atraumatic, bilateral external ears normal, nose normal. [] Eyes: PERRLA, EOMI, conjunctiva normal, no discharge. [] Neck: Normal range of motion, no stridor. [] Cardiovascular:Heart rate regular rhythm Lungs & Thorax: Respirations even and unlabored, no retractions, no respiratory distress Breasts: Right breast area of tenderness without visible erythema, palpable warmth, or edema noted at 6:00 over the areola Skin: Warm, dry, no erythema, no rash. [] Extremities: No cyanosis, ROM intact, no edema. [] Neurologic: Alert and oriented X 3, no focal deficits noted. [] Psychologic: Affect normal, judgement normal, mood normal. [] (LINDA CURRY PHOTOSTATIC COPY MAKER) Current Patient Data: Vital Signs: Vital Signs Date Time Temp Pulse Resp B/P (MAP) Pulse Ox O2 Delivery O2 Flow Rate FiO2 05/26/20 13:30 98.8 86 16 119/58 (78) 99 Room Air 98.8 (LINDA CURRY PHOTOSTATIC COPY MAKER) EKG: EKG: [] (LINDA CURRY PHOTOSTATIC COPY MAKER) Radiology/Procedures: Radiology/Procedures: PROCEDURE: BREAST RIGHT Examination: Limited right breast ultrasound. INDICATION: 30-year-old woman presenting with a tender knot at the 6:00 right breast in the areola. COMPARISON: CT angiogram chest of 04/21/2020 TECHNIQUE: Grayscale ultrasound imaging of the area of patient's reported palpable tenderness was performed in the general region of the retroareolar right 6:00 breast. FINDINGS: No fluid collection is identified. No architectural distortion or suspicious sonographic mass is apparent. The breast shows ultrasound features suggesting a dense fibroglandular pattern of breast tissue. There is localized skin thickening in the area of patient's reported palpable concern, best illustrated image 2 of 8. IMPRESSION: Possible skin lesion at the area of palpable concern. No evidence of a breast malignancy currently. BI-RADS 2 Benign findings Patient entered into a reminder system with targeted due date for next mammogram.[] (LINDA CURRY APRN) Course & Med Decision Making: Course & Med Decision Making Pertinent Labs and Imaging studies reviewed. (See chart for details) [] (LINDA CURRY APRN) Course & Med Decision Making I have reviewed the PA/INNER TUBE INSERTER's note and Plan of Care. I was available for consultation as needed during the patient's visit in the emergency department. I agree with the clinical impression, plans and disposition. (SAMUEL DONATO MD) Dragon Disclaimer: Dragon Disclaimer: This electronic medical record was generated, in whole or in part, using a voice recognition dictation system. (LINDA CURRY APRN) Departure Departure Impression: Primary Impression: Pain of right breast Additional Impression: Cellulitis of right breast Disposition: HOME, SELF-CARE Condition: STABLE Referrals: NO PCP (PCP) Patient Instructions: Breast Tenderness, Cellulitis, [id number] Additional Instructions: Fill prescription and use as directed. Apply warm moist heat to area as needed for comfort. Follow up with your doctor in 1-2 days for recheck. Tylenol as needed for pain. Return to the ER if symptoms worsen. Scripts Cephalexin (CEPHALEXIN) 500 Mg Capsule 1 CAP PO QID for 7 Days, #28 CAP 0 Refills Prov: LINDA CURRY APRN 05/26/20 Justicifation of Admission Dx: Justifications for Admission: Justification of Admission Dx: N/A (LINDA CURRY APRN) LINDA CURRY APRN May 26, 2020 15:05 SAMUEL DONATO MD May 27, 2020 20:34
[2020-05-26 15:12] VITALS: BP 109/56
== END 2020-05-26 15:15 | disposition home or self-care (01) ==
LOC: ER 13:06
DX: O91.112 Abscess of breast associated with pregnancy, second trimester (principal); O99.332 Smoking (tobacco) complicating pregnancy, second trimester; Z3A.15 15 weeks gestation of pregnancy; Z86.718 Personal history of other venous thrombosis and embolism; Z88.0 Allergy status to penicillin
CPT/HCPCS: 76641; 99284